=== PATIENT | male | born 1950 | race Caucasian/White ===

== ENCOUNTER → 2017-05-31 15:42 | Outpatient (CLI) | payer MEDICARE, BC, SELFPAY ==
--- NOTE | 2017-05-31 16:14 | RAD_ITS ---
STUDY: X-RAY - RIGHT SHOULDER REASON FOR EXAM: Recent surgery on right shoulder, inflammation. TECHNIQUE: 4 view(s) of the shoulder. COMPARISON: None. FINDINGS: There is glenohumeral arthrosis with marginal osteophytes of the humeral head and joint space narrowing at the inferior aspect. There is no acromioclavicular arthrosis. There are anchors in the humeral head. There is faint tendon calcification in the rotator cuff. There is narrowing of the acromiohumeral distance on the AP projection. There is atelectasis at the right lung base. RAD/Shoulder min 2 Views IMPRESSION: Glenohumeral arthrosis. Rotator cuff tendon calcification and narrowing of the acromiohumeral distance. Electronically Signed: Rustam Campos MD at 10:34 EST Tel , Service support ,
--- NOTE | 2017-05-31 16:21 | RAD_ITS ---
STUDY: X-RAY - LEFT SHOULDER REASON FOR EXAM: Left shoulder pain. TECHNIQUE: 4 view(s) of the shoulder. COMPARISON: None. FINDINGS: Normal glenohumeral articulation. Normal acromioclavicular joint. Normal acromion. Normal humeral head and visualized proximal humerus. The soft tissue structures are unremarkable. Normal visualized pulmonary apex. RAD/Shoulder min 2 Views IMPRESSION: Unremarkable x-ray examination of the left shoulder. Electronically Signed: Rustam Campos MD at 8:54 EST Tel , Service support ,
[2017-05-31 17:25] LABS: Absolute Lymphocyte Count 0.87 X10^3/ul (0.83-4.51); Basophil# 0.03 X10^3/uL; Basophil% 0.3 % (0-1); Eosinophil# 0.16 X10^3/uL; Eosinophils% 1.6 % (0-5); Hematocrit 44.7 % (40-54); Hemoglobin 14.6 g/dl (13.0-16.5); Lymphocyte # 0.87 X10^3/ul (4.0); Lymphocyte % 8.9 % (19-41); Mean Corp Hgb Conc 32.7 g/gl (32-36); Mean Corpuscular Hgb 33.8 pg (27.0-32.0); Mean Corpuscular Volume 103.5 fL (80-94); Mean Platelet Vol. 11.3 fl (6.2-12.0); Monocyte# 0.67 X10^3/uL; Monocyte% 6.9 % (0-10); Neutrophil # 7.97 X10^3/uL (2.7-7.7); Neutrophil % 81.6 % (47-70); Platelet Count 309 K/mm3 (150-450); RBC Distribution Width CV 13.8 % (11.6-14.6); RBC Distribution Width SD 52.3 fl (35.1-43.9); Red Blood Count 4.32 M/mm3 (4.6-6.2); White Blood Count 9.8 K/mm3 (4.4-11.0)
[2017-05-31 17:27] LABS: POSITIVE COUNT NO; POSITIVE DIFFERENTIAL NO; POSITIVE MORPHOLOGY NO
[2017-05-31 18:15] LABS: ALB/GLOB Ratio 1.4 RATIO (0.9-2.4); AST(SGOT) 29 U/L (15-37); Alanine Aminotransfer ALT/SGPT 28 U/L (16-61); Albumin, Serum 4.1 g/dL (3.2-5.0); Alkaline Phosphatase 92 U/L (45-117); Anion Gap 9 (5-15); BUN 21 mg/dL (7-18); BUN/Creat Ratio 21.5 RATIO (10-20); Calcium,Total 8.9 mg/dL (8.5-10.1); Chloride 102 mmol/L (98-107); Creatinine, Serum 0.98 mg/dL (0.70-1.30); EST Glomerular Filtration Rate 82 mL/min (>60); Est Glom Filt Rate - Afr Amer 99 mL/min (>60); Glucose 94 mg/dL (74-106); Potassium 3.8 mmol/L (3.5-5.1); Protein, Total 7.1 g/dL (6.4-8.2); Sodium Level 139 mmol/L (136-145)
== END ==
PROVIDERS: Family Provider Family Medicine; PCP Family Medicine; Visit Provider Internal Medicine
DX: M06.4 Inflammatory polyarthropathy (principal); M17.0 Bilateral primary osteoarthritis of knee; Q66.7 Congenital pes cavus; G31.83 Neurocognitive disorder with Lewy bodies; I48.0 Paroxysmal atrial fibrillation; J44.9 Chronic obstructive pulmonary disease, unspecified; M47.897 Other spondylosis, lumbosacral region; G20 Parkinson's disease; F03.90 Unspecified dementia, unspecified severity, without behavioral disturbance, psychotic disturbance, mood disturbance, and anxiety; Z79.899 Other long term (current) drug therapy
CPT/HCPCS: 36415; 73030; 80053; 85025

== ENCOUNTER → 2017-12-12 11:52 | Outpatient (CLI) | payer MEDICARE, BC, SELFPAY ==
[2017-12-12 12:41] LABS: Absolute Lymphocyte Count 0.83 X10^3/ul (0.83-4.51); Absolute Neutrophil Count 6.7 X10^3/uL (2.0-7.7); Basophil# 0.03 X10^3/uL; Basophil% 0.4 % (0-1); Eosinophil# 0.19 X10^3/uL; Eosinophils% 2.3 % (0-5); Hematocrit 44.6 % (40-54); Hemoglobin 13.9 g/dl (13.0-16.5); Lymphocyte # 0.83 X10^3/ul (4.0); Mean Corp Hgb Conc 31.2 g/gl (32-36); Mean Corpuscular Hgb 32.6 pg (27.0-32.0); Mean Corpuscular Volume 104.7 fL (80-94); Mean Platelet Vol. 10.3 fl (6.2-12.0); Monocyte# 0.51 X10^3/uL; Monocyte% 6.1 % (0-10); Neutrophil % 80.4 % (47-70); POSITIVE COUNT NO; POSITIVE DIFFERENTIAL NO; POSITIVE MORPHOLOGY NO; Platelet Count 332 K/mm3 (150-450); RBC Distribution Width CV 13.9 % (11.6-14.6); RBC Distribution Width SD 52.6 fl (35.1-43.9); Red Blood Count 4.26 M/mm3 (4.6-6.2); White Blood Count 8.3 K/mm3 (4.4-11.0)
[2017-12-12 13:08] LABS: ALB/GLOB Ratio 1.1 RATIO (0.9-2.4); AST(SGOT) 22 U/L (15-37); Alanine Aminotransfer ALT/SGPT 17 U/L (16-61); Albumin, Serum 3.5 g/dL (3.2-5.0); Alkaline Phosphatase 78 U/L (45-117); Anion Gap 10 (5-15); BUN 16 mg/dL (7-18); BUN/Creat Ratio 20.4 RATIO (10-20); Calcium,Total 8.5 mg/dL (8.5-10.1); Chloride 108 mmol/L (98-107); Creatinine, Serum 0.78 mg/dL (0.70-1.30); EST Glomerular Filtration Rate 105 mL/min (>60); Est Glom Filt Rate - Afr Amer 127 mL/min (>60); Globulin 3.2 g/dL (2.2-4.2); Glucose 94 mg/dL (74-106); Potassium 3.9 mmol/L (3.5-5.1); Protein, Total 6.7 g/dL (6.4-8.2); Sodium Level 145 mmol/L (136-145)
== END ==
PROVIDERS: Family Provider Family Medicine; PCP Family Medicine; Visit Provider Family Medicine
DX: Z51.81 Encounter for therapeutic drug level monitoring (principal)
CPT/HCPCS: 80053; 85025

== ENCOUNTER → 2018-03-13 08:34 | Outpatient (CLI) | payer MEDICARE, BC, SELFPAY | PROVIDERS: Family Provider Family Medicine; PCP Family Medicine; Visit Provider Family Medicine | DX: M06.9 Rheumatoid arthritis, unspecified (principal); Z51.81 Encounter for therapeutic drug level monitoring ==

== ENCOUNTER → 2018-06-11 09:53 | Outpatient (CLI) | payer MEDICARE, BC, SELFPAY ==
--- NOTE | 2018-06-11 09:57 | ECHOD_ITS ---
Reason For Study: Afib/Flutter Procedure This was a 2D Doppler, Color Flow transthoracic echocardiogram. Exam performed in department. Left Ventricle Normal LV size. Moderate eccentric left ventricular hypertrophy. Mid cavitary false tendon noted. The estimated ejection fraction is 60 %. Left ventricular systolic function is normal. Stage 3 diastolic dysfunction. No regional wall motion abnormalities noted. Atria The left atrium is mildly enlarged. Normal right atrium. Mitral Valve Normal mitral valve. Mild (1+) eccentric mitral valve insufficiency. Tricuspid Valve Normal tricuspid valve. Mild (1+) tricuspid valve insufficiency. Pulmonary artery systolic pressure is 36 mmHg. Aortic Valve Mild focal aortic valve calcification. Bicuspid aortic valve. Mild-Moderate (1-2+) eccentric aortic valve insufficiency. Pulmonic Valve Normal pulmonic valve. Great Vessels Normal aortic root. The pulmonary artery is normal size. Normal inferior vena cava. Pericardium/Pleural No pericardial effusion. MMode/2D Measurements & Calculations LVIDd: 4.3 cm IVSd: 1.7 cm LVOT diam: 2.0 cm LVIDs: 2.2 cm LVPWd: 1.1 cm LVOT area: 3.2 cm2 RVDd: 3.3 cm FS: 49.5 % Ao root diam: 4.2 cm LAV(MOD-bp): 89.6 ml Aortic Valve Planimetry: 2.1 cm2 LA dimension: 5.4 cm LAV(MOD-bp) Indexed: 44.8 ml/m2 LAV(MOD-sp2): 83.2 ml LAV(MOD-sp4): 84.8 ml LA A4 area: 26.6 cm2 RA A4 area: 12.7 cm2 Time Measurements MV dec time: 0.14 sec Doppler Measurements & Calculations MV E max alen: 108.9 cm/sec Lat Peak E' Alen: 13.9 cm/sec Med Peak E' Alen: 11.4 cm/sec MV A max alen: 26.4 cm/sec E/E' lat: 7.9 E/E' med: 9.5 MV E/A: 4.1 Ao V2 max: 162.2 cm/sec AI max alen: 489.1 cm/sec LV V1 max: 115.9 cm/sec Ao max P.5 mmHg AI max P.7 mmHg LV V1 max P.4 mmHg Ao V2 mean: 109.7 cm/sec AI dec slope: 276.7 cm/sec2 LV V1 mean P.7 mmHg Ao mean P.4 mmHg AI P1/2t: 517.7 msec LV V1 mean: 75.4 cm/sec Ao V2 VTI: 29.7 cm LV V1 VTI: 23.0 cm JOAQUIN(I,D): 2.5 cm2 JOAQUIN(V,D): 2.3 cm2 SV(LVOT): 74.3 ml PA V2 max: 77.8 cm/sec TR max alen: 285.2 cm/sec TR max P.5 mmHg Interpretation Summary Normal LV size. Moderate eccentric left ventricular hypertrophy. The estimated ejection fraction is 60 %. Left ventricular systolic function is normal. Stage 3 diastolic dysfunction. Mild (1+) tricuspid valve insufficiency. Ordering Physician: Ole Bassett Referring Physician: Ole Bassett Performed By: Antonio Vail RCS
== END ==
PROVIDERS: Family Provider Family Medicine; PCP Family Medicine; Referring Provider Internal Medicine Cardiovascular Disease; Visit Provider Internal Medicine Cardiovascular Disease
DX: I48.3 Typical atrial flutter (principal)
CPT/HCPCS: 93306

== ENCOUNTER 2018-08-02 10:21 | Emergency (ER) | payer MEDICARE, BC, SELFPAY ==
[2018-08-02 10:23] VITALS: BP 124/78; PULSE 78; RESP 24; TEMP 36.4; O2SAT 90; BMI 29.9
--- NOTE | 2018-08-02 10:24 | RAD_ITS ---
STUDY: X-RAY CHEST REASON FOR EXAM: Male, 68 years old. Weakness. Atrial fibrillation. TECHNIQUE: Single AP portable view of the chest. COMPARISON: Comparison is made with prior study dated January 13, 2017. FINDINGS: EKG electrodes are seen. Mild increased markings at the lung bases suggestive of bibasilar atelectasis. Poor inspiratory effort. There is no demonstrated pleural abnormality. Normal size heart. Normal mediastinum and edward. Normal visualized pulmonary arteries. There is atherosclerotic tortuosity of the aortic arch and descending thoracic aorta. There are diffuse degenerative changes of the visualized thoracic spine. Normal visualized ribs, clavicles, and shoulders. There is no demonstrated abnormality of the visualized soft tissue structures of the upper abdomen. RAD/Chest 1 View (Portable) IMPRESSION: Mild degree of bibasilar atelectasis. Electronically Signed: Ishan Singh, at 11:04 EDT , Service support ,
--- NOTE | 2018-08-02 10:24 | EKG12_ITS ---
Test Reason : Blood Pressure : / mmHG Vent. Rate : 078 BPM Atrial Rate : 312 BPM P-R Int : 000 ms QRS Dur : 096 ms QT Int : 398 ms P-R-T Axes : 000 -06 007 degrees QTc Int : 453 ms Atrial fibrillation with premature ventricular or aberrantly conducted complexes Minimal voltage criteria for LVH, may be normal variant Abnormal ECG Confirmed by JESUS FORMAN, JON ([id number]), art editor DIANN FLORES ([id number]) on 08/06/2018 10:22:17 AM Referred By: PETER Confirmed By:JON LEE MD
--- NOTE | 2018-08-02 10:25 | CT_ITS ---
STUDY: CT BRAIN WITHOUT CONTRAST REASON FOR EXAM: Male, 68 years old. Weakness and dementia. RADIATION DOSAGE (If Supplied By Facility): CTDIvol = ( 44.99 ) mGy, DLP = ( 829.85 ) mGycm TECHNIQUE: Transaxial CT imaging of the brain was performed without administration of intravenous contrast material. Individualized dose optimization techniques were used for this CT. COMPARISON: Comparison is made with prior study dated October 30, 2015. FINDINGS: Normal soft tissue structures. Normal calvarium. Normal size ventricles and extra-axial spaces for the patient's age. Normal white matter tracts of the cerebral hemispheres. There are small punctate calcifications of the basal ganglia which are seen in the aging brain as a normal variant. Normal brainstem. Normal cerebellum. There is no intracranial hemorrhage. There are no findings of an acute ischemic infarction. Normal visualized paranasal sinuses. CT/Brain/Head without Contrast IMPRESSION: Normal unenhanced CT scan of the brain. Electronically Signed: Ishan Singh, at 11:41 EDT , Service support ,
--- NOTE | 2018-08-02 10:28 | ED.DCSUM_ITS ---
- ER Visit Summary Date of Service: 08/02/18 Chief Complaint: [] Falling cough weakness trouble walking History of Present Illness: The patient is a 68 M [] patient has a history of dementia Parkinson's disease difficulty with gait at baseline, per EMS they were called to the patient's home because he had worsening weakness to the point he kept falling could not manage him he has fallen once or twice he did not injure himself the last time he fell the called the neighbor who helped to get him off the ground, then apparently he had a fall or near fall again and paramedics were called on their arrival he was sitting, no complaints he does complain of generalized fatigue he has a cough his pulse ox here is 91% on room air indicates he does have some type of breathing problem he takes an inhaler, he denies head neck chest or abdominal pain he feels he is at his baseline he is moving all 4 extremities NIH is 0, his cardiac rhythm is irregular to about 70- 80's noted that he is on Xarelto other hospital records indicate he has a flutter or fib Physical Examination: [] 130/80, heart rate 70-80 pulse ox 90% room air General, no distress resting comfortably HEENT is generally unremarkable The neck is supple no adenopathy Cardiovascular, regular rate and rhythm Lungs, clear bilateral Abdomen, soft nontender Extremities, no clubbing cyanosis or edema Neurologic, awake alert answering questions appropriately moving all 4 extremities he has some scattered bruising to his extremities he is awake alert answering questions appropriately no signs of head injury or stroke that is obvious, his NIH is 0 Test Results: [] Emergency Department Course and Treatment: [] All of the above screening labs CT aerosols will discuss with family if they present On reevaluation the patient's pulse ox is now 93 on room air he is resting comfortably in the bed, the indicate he does have COPD and after the aerosol he is feeling better the is here his studies are all generally unremarkable to his reports including the CT, he has no complaints of any kind we discussed inpatient versus outpatient management with the and the patient the patient does not wish to be admitted the is couple taking him home for further outpatient management and have him return for change in symptoms and she is just feels as if she can manage him at home and does not wish to have him admitted Treatment Plan: [] Disposition: [] Home stable Impression: [] History of Parkinson's disease dementia, generalized weakness, COPD This note was generated with [employer] dictation software. It may contain incorrect words, spelling, and punctuation that were not noted in review of the chart prior to signing ED Disposition - Plan for ED Patient: Referrals: Cristobal Robledo DO [Primary Care Provider] -
[2018-08-02 10:30] VITALS: BP 115/84; PULSE 69; RESP 20; O2SAT 95
[2018-08-02 10:40] LABS: Absolute Lymphocyte Count 0.83 X10^3/ul (0.83-4.51); Absolute Neutrophil Count 5.6 X10^3/uL (2.0-7.7); Basophil# 0.04 X10^3/uL; Basophil% 0.6 % (0-1); Eosinophil# 0.13 X10^3/uL; Eosinophils% 1.9 % (0-5); Hematocrit 41.9 % (40-54); Hemoglobin 13.6 g/dl (13.0-16.5); Lymphocyte # 0.83 X10^3/ul (4.0); Lymphocyte % 12.2 % (19-41); Mean Corp Hgb Conc 32.5 g/gl (32-36); Mean Corpuscular Volume 101.7 fL (80-94); Mean Platelet Vol. 10.6 fl (6.2-12.0); Monocyte# 0.21 X10^3/uL; Monocyte% 3.1 % (0-10); Neutrophil # 5.56 X10^3/uL (2.7-7.7); Neutrophil % 81.6 % (47-70); Platelet Count 237 K/mm3 (150-450); RBC Distribution Width CV 13.9 % (11.6-14.6); RBC Distribution Width SD 51.5 fl (35.1-43.9); Red Blood Count 4.12 M/mm3 (4.6-6.2); White Blood Count 6.8 K/mm3 (4.4-11.0)
[2018-08-02 10:41] LABS: POSITIVE COUNT NO; POSITIVE DIFFERENTIAL NO; POSITIVE MORPHOLOGY NO
[2018-08-02 10:43] VITALS: PULSE 71; RESP 17; O2SAT 96
[2018-08-02] MEDS: Ipratropium/Albuterol Sulfate 3 ML AMPUL.NEB INHALATION ×2 (10:43→13:48)
[2018-08-02] MEDS: 0.9% Normal Saline 1,000 ML 150 ML IV (10:51)
[2018-08-02 10:59] LABS: Anion Gap 5 (5-15); BUN 12 mg/dL (7-18); BUN/Creat Ratio 13.1 RATIO (10-20); Calcium,Total 8.9 mg/dL (8.5-10.1); Chloride 110 mmol/L (98-107); Creatinine, Serum 0.92 mg/dL (0.70-1.30); EST Glomerular Filtration Rate 87 mL/min (>60); Est Glom Filt Rate - Afr Amer 106 mL/min (>60); Estimated Creatinine Clearance 75.38 ml/min; Glucose 97 mg/dL (74-106); Potassium 3.5 mmol/L (3.5-5.1); Sodium Level 144 mmol/L (136-145)
--- NOTE | 2018-08-02 13:15 | ED.DEP ---
ED Disposition - Plan for ED Patient: Instructions: ED Weakness [facility]O, ED COPD Flare Referrals: Cristobal Robledo DO [Primary Care Provider] -
[2018-08-02 13:49] VITALS: PULSE 78; RESP 20; O2SAT 98
[2018-08-02 14:10] VITALS: BP 137/97; PULSE 72; RESP 17; O2SAT 97
== END 2018-08-02 14:13 | disposition home or self-care (01) ==
LOC: ED 10:53
PROVIDERS: Emergency Provider Emergency Medicine; Family Provider Family Medicine; PCP Family Medicine
DX: R53.1 Weakness (principal); G20 Parkinson's disease; F02.80 Dementia in other diseases classified elsewhere, unspecified severity, without behavioral disturbance, psychotic disturbance, mood disturbance, and anxiety; J44.9 Chronic obstructive pulmonary disease, unspecified; I48.91 Unspecified atrial fibrillation; Z79.02 Long term (current) use of antithrombotics/antiplatelets; Z79.51 Long term (current) use of inhaled steroids
CPT/HCPCS: 70450; 71045; 80048; 83880; 84484; 85025; 93005; 94640; 96360; 96361; 99285; J7030; A4216

== ENCOUNTER → 2018-09-03 | Outpatient (CLI) | payer MEDICARE, BC, SELFPAY ==
[2018-09-03 14:40] LABS: Color, Urine Yellow (Yellow); Glucose, Dipstick Normal (Normal); Ketone-Dipstick 15 mg/dl (Negative); Leukocyte Esterase-Dipstick 25 /ul (Negative); Nitrite-Dipstick Negative (Negative); Occult Blood-Urine Negative /ul (Negative); Protein-Dipstick 30 mg/dl (Negative); Urine Bilirubin Dipstick Negative (Negative); Urine Clarity Clear (Clear); Urine Urobilinogen 1 mg/dl (Normal)
== END | disposition home or self-care (01) ==
PROVIDERS: Family Provider Family Medicine; PCP Family Medicine
DX: R35.8 Other polyuria (principal)
CPT/HCPCS: 81002

== ENCOUNTER → 2018-10-22 | Outpatient (CLI) | payer MEDICARE, BC, SELFPAY ==
--- NOTE | 2018-10-22 09:38 | RAD_ITS ---
STUDY: X-RAY - CERVICAL SPINE REASON FOR EXAM: Male, 68 years old. Chronic pain. TECHNIQUE: 3 view(s) of the cervical spine were obtained. COMPARISON: None FINDINGS: Normal anterior atlantoaxial articulation. Normal odontoid process. Normal cervical lordosis. There is multi-level endplate spondylosis. There is multi-level degenerative disc disease with multilevel disc space narrowing. The soft tissue structures are unremarkable. RAD/Cerv Spine 2 or 3 Views IMPRESSION: Degenerative changes. Electronically Signed: Maite Marquez MD at 17:01 EDT Tel , Service support ,
== END | disposition home or self-care (01) ==
LOC: RAD 09:36
PROVIDERS: Family Provider Family Medicine; PCP Family Medicine; Referring Provider Anesthesiology Pain Medicine; Visit Provider Anesthesiology Pain Medicine
DX: M54.2 Cervicalgia (principal)
CPT/HCPCS: 72040

== ENCOUNTER 2019-03-20 09:48 | Inpatient (IN) | payer MEDICARE, OTHER, SELFPAY ==
[2018-11-26 11:12] VITALS: BMI 29.9
[2019-03-20] VITALS (7 sets, daily range): BP systolic 110–159; BP diastolic 70–96; PULSE 74–79; RESP 16–24; TEMP 36.2–36.7; O2SAT 95–100; BMI 27.1; BMI 27.3; BMI 27.4
--- NOTE | 2019-03-20 09:58 | RAD_ITS ---
STUDY: X-RAY CHEST REASON FOR EXAM: Male, 69 years old. Chest pain and confusion. TECHNIQUE: Single AP portable view of the chest. COMPARISON: Comparison is made with prior study dated August 02, 2018. FINDINGS: Minimal increased markings at the right lung base suggestive of scarring. There is no demonstrated pleural abnormality. Normal size heart. Normal mediastinum and edward. Normal visualized pulmonary arteries. There is atherosclerotic tortuosity of the aortic arch and descending thoracic aorta. There are degenerative changes of the visualized thoracic spine. Prior interpedicular screw fixation in the upper lumbar spine. Normal visualized ribs, clavicles, and shoulders. There is no demonstrated abnormality of the visualized soft tissue structures of the upper abdomen. RAD/Chest 1 View (Portable) IMPRESSION: Minimal increased markings at the right lung base suggestive of scarring. Electronically Signed: Ishan Singh, at 10:25 EST , Service support ,
--- NOTE | 2019-03-20 09:58 | EKG12_ITS ---
Test Reason : CONFUSION Blood Pressure : / mmHG Vent. Rate : 076 BPM Atrial Rate : 326 BPM P-R Int : 000 ms QRS Dur : 086 ms QT Int : 392 ms P-R-T Axes : 000 004 007 degrees QTc Int : 441 ms Atrial fibrillation Abnormal ECG Confirmed by LOPEZ FORMAN, NOAH ([id number]), editor sound BENEDICTO GOMEZ ([id number]) on 03/24/2019 9:46:23 AM Referred By: Johnyn Lizarraga Confirmed By:DUANE MARROQUIN MD
--- NOTE | 2019-03-20 10:24 | CT_ITS ---
STUDY: CT BRAIN WITHOUT CONTRAST REASON FOR EXAM: Male, 69 years old. Confusion. Parkinson's disease. RADIATION DOSAGE (If Supplied By Facility): CTDIvol = ( 44.99 ) mGy, DLP = ( 796.11 ) mGycm TECHNIQUE: Transaxial CT imaging of the brain was performed without administration of intravenous contrast material. Individualized dose optimization techniques were used for this CT. COMPARISON: Comparison is made with prior examination dated August 02, 2018. FINDINGS: Normal soft tissue structures. Normal calvarium. There is mild cerebral atrophy with widening of the extra-axial spaces and ventricular dilatation. Normal white matter tracts of the cerebral hemispheres. There are small punctate calcifications of the basal ganglia which are seen in the aging brain as a normal variant. Normal brainstem. Normal cerebellum. There is no intracranial hemorrhage. There are no findings of an acute ischemic infarction. Atherosclerotic calcification of the cavernous portions of the internal carotid arteries as well as the vertebral arteries bilaterally. Normal visualized paranasal sinuses. CT/Brain/Head without Contrast IMPRESSION: Chronic involutional changes of the brain. Electronically Signed: Ishan Singh, at 11:19 EST , Service support ,
--- NOTE | 2019-03-20 10:32 | ED.VIS.GEN ---
History of Present Illness Chief Complaint: Confusion Informant: Patient Onset: Month(s) Current Severity: Mild Narrative: History of Parkinson's disease with Lewy bodies and transient confusional episodes, per the he has had progressively worsening confusion to where she cannot manage him at home, he basically tries to walk outside the house, verbalizes that he went for a walk when he did not, he puts garbage in the refrigerator and has other behaviors that make it hard for the to manage him, she has been trying to manage him by making sure he takes all his medications keeping him well hydrated and fed he has not improved, she spoke with Dr. Robledo the primary care physician and it was recommended he come to the hospital for admission for skilled nursing rehab placement, he does have A. fib he is on Xarelto he has not fallen or hit his head he has had no nausea or vomiting normal bowel bladder habits Past Medical History - Allergies and Home Meds Allergies/Adverse Reactions: Allergies gentamicin [Gentamicin] Allergy (Verified 03/20/19 09:51) Unknown hydrocodone bitartrate [From Vicodin] Allergy (Verified 03/20/19 09:51) Itching morphine Allergy (Verified 03/20/19 09:51) Itching oxycodone Allergy (Verified 03/20/19 09:51) Itching Primary Care Physician: Cristobal Robledo DO [Primary Care Provider] - Past Medical History: - - Includes Parkinson's disease A. fib see the above Surgical History: appendectomy, cholecystectomy, rotator cuff repair, - - Hernia repair, Foot surgery, Ablation. Smoking Status: Former smoker Review of Systems General: Denies: Chills, Fever, Sweats Eyes: Denies: Visual changes - bilaterally, Diplopia ENT: Denies: Rhinorrhea, Sore throat Cardiovascular: Denies: Chest pain, Palpitations Respiratory: Denies: Dyspnea, Cough, Dyspnea on exertion Gastrointestinal: Denies: Abdominal pain, Nausea, Vomiting, Diarrhea, Melena, Hematochezia Genitourinary: Denies: Dysuria, Hematuria, Frequency Musculoskeletal: Denies: Back pain, Extremity Pain Skin: Denies: Rash, Wounds Neurological: Reports: - - Worsening confusion hallucinations about activities behaviors as above. Denies: Headache, Weakness, Numbness Physical Exam Vital Signs/Narrative: Vital Signs Temp Pulse Resp BP Pulse Ox 03/20/19 09:49 98 F 74 18 110/70 100 General: Well nourished, Well developed, No Acute Distress Head: Normocephalic, Atraumatic Eyes: Perrl, EOMI ENT: Moist mucous membranes, No rhinorrhea Neck: Supple, Nontender Cardiovascular: Regular rate, Regular rhythm, No murmurs Respiratory: No distress, CTA bilaterally, Chest nontender Abdomen: Soft, Nontender, Nondistended, Normal bowel sounds Back: Nontender, Normal Inspection Extremities: Nontender, No edema Skin: Normal color, No rash Neurological: Alert, Oriented x3, Cranial nerves II-XII grossly intact, Normal Strength, Normal Sensation, - - Currently moving all 4 extremities he is awake to his name knows his [facility] he has no complaints he does not have any details nor can he remember the above events he does recognize at times he is confused he denies head neck chest or abdominal pain Psychological: Normal affect, Normal Mood Diagnostic/Tx/Re-eval - Medical Decision Making All the above screening labs head CT The patient screening work-up with labs x-ray head CT generally unremarkable Patient's EKG shows a rate of 76 no acute injury pattern atrial fibrillation intervals within range Given all the above and the 's inability to manage him at home has progressively worsening confusion I have asked the hospitalist to see the patient for admission Admit stable Impression final Parkinson's dementia with worsening confusion Failed outpatient therapy Atrial fibrillation Xarelto therapy ED Disposition - Plan for ED Patient: Diagnosis: Atrial flutter, Confusion change in mental status Pinky Referrals: Cristobal Robledo DO [Primary Care Provider] -
[2019-03-20 10:38] LABS: Absolute Lymphocyte Count 0.69 X10^3/uL (0.83-4.51); Basophil# 0.05 X10^3/uL; Basophil% 0.6 % (0-1); Eosinophil# 0.15 X10^3/uL; Eosinophils% 1.7 % (0-5); Hematocrit 39.8 % (40-54); Hemoglobin 12.9 g/dL (13.0-16.5); Lymphocyte # 0.69 X10^3/ul (4.0); Mean Corp Hgb Conc 32.4 g/dL (32-36); Mean Corpuscular Hgb 33.6 pg (27.0-32.0); Mean Corpuscular Volume 103.6 fL (80-94); Mean Platelet Vol. 10.5 fl (6.2-12.0); Monocyte# 0.65 X10^3/uL; Monocyte% 7.6 % (0-10); NRBC Flagged by Analyzer 0 % (0-5); Neutrophil # 6.99 X10^3/uL (2.7-7.7); Neutrophil % 81.4 % (47-70); Platelet Count 269 K/mm3 (150-450); RBC Distribution Width CV 12.9 % (11.6-14.6); Red Blood Count 3.84 M/mm3 (4.6-6.2); White Blood Count 8.6 K/mm3 (4.4-11.0)
[2019-03-20] MEDS: 0.9% Normal Saline 1,000 ML 150 ML IV (10:40)
--- NOTE | 2019-03-20 10:46 | ED.RN ---
PT A&O X3 W/PERIODS OF CONFUSION AND HALLUCINATIONS- STATES HE WAS HIKING IN THE [place], REACHING FOR OBJECTS IN THE AIR THAT AREN'T THERE.
[2019-03-20 10:58] LABS: Anion Gap 5 (5-15); BUN 12 mg/dL (7-18); BUN/Creat Ratio 14.3 RATIO (10-20); Calcium,Total 8.6 mg/dL (8.5-10.1); Chloride 110 mmol/L (98-107); Creatinine, Serum 0.84 mg/dL (0.70-1.30); EST Glomerular Filtration Rate 96 mL/min (>60); Est Glom Filt Rate - Afr Amer 117 mL/min (>60); Estimated Creatinine Clearance 78.69 ml/min; Glucose 91 mg/dL (74-106); Potassium 3.5 mmol/L (3.5-5.1); Sodium Level 144 mmol/L (136-145)
--- NOTE | 2019-03-20 11:41 | NURSING ---
HOSPITALIST FOR DR GREEN
--- NOTE | 2019-03-20 11:47 | NURSING ---
med surg teressa worsening confusion, parkinson's , dementia
--- NOTE | 2019-03-20 11:59 | PCM.HP.STD ---
Problem List (1) Lewy body dementia with behavioral disturbance Status: Acute (2) Parkinson's disease Status: Acute (3) Chronic atrial fibrillation Status: Chronic (4) Diastolic dysfunction Status: Chronic (5) Nonrheumatic aortic (valve) insufficiency Status: Chronic (6) Bicuspid aortic valve Status: Chronic (7) Atrial flutter Status: Chronic Qualifiers: Atrial flutter type: typical Qualified Code(s): I48.3 - Typical atrial flutter Comment: pulmonary vein isolation , cardioversion 1999, 2007,2008, 2014 History of Present Illness Date of Admission: 03/20/19 Chief Complaint: Progressive worsening of mental status for 2 to 3 weeks The patient is a 69 year old M with history of Parkinson's disease with Lewy body dementia diagnosed about 3 years ago was brought in to ER for progressive worsening of disorganized thought, change in behavior, confusion and worsening of memory. As per the , who is main caregiver he tries to walk outside the house, puts carbogen refrigerator and gets restless. He denies any persistent fever or chills although had one episode of chills about 2 weeks ago. Complain of sometimes burning micturition at about 1 week ago and was tested negative and UA done by PCP on past Monday. Currently denies dysuria, increased frequency urgency. Denies flulike symptoms, sinus congestion or sore throat. No abdominal pain. Has mild constipation. [] Basic work-up done in ER is unrevealing. K3.5. Chest x-ray no acute finding but minimal increased markings at right lung base history of scarring. CT brain chronic involutional changes. EKG A. fib 76 bpm. Previous EKG in July 2018 was also A. fib. Past Medical History Past Medical History (Chronic Problems): Chronic Problems (Last Updated 06/11/18 @ 16:28 by Nandini Luciano) Chronic atrial fibrillation (Chronic) Diastolic dysfunction (Chronic) Nonrheumatic aortic (valve) insufficiency (Chronic) Bicuspid aortic valve (Chronic) Atrial flutter (Chronic) pulmonary vein isolation , cardioversion 1999, 2007,2008, 2014 Medical History: Medical History (Last Updated 06/11/18 @ 16:28 by Nandini Luciano) Diastolic dysfunction (Chronic) I51.89 Nonrheumatic aortic (valve) insufficiency (Chronic) I35.1 Palpitations (Chronic) R00.2 Bicuspid aortic valve (Chronic) Q23.1 Atrial flutter (Chronic) I48.92 pulmonary vein isolation , cardioversion 1999, 2007,2008, 2014 Asthma J45.909 Chest discomfort R07.89 Fatigue R53.83 Allergies gentamicin [Gentamicin] Allergy (Verified 03/20/19 09:51) Unknown hydrocodone bitartrate [From Vicodin] Allergy (Verified 03/20/19 09:51) Itching morphine Allergy (Verified 03/20/19 09:51) Itching oxycodone Allergy (Verified 03/20/19 09:51) Itching Home Medications: Ambulatory Orders Medication Instructions Recorded carbidopa 25 mg-levodopa 100 mg 1 tab PO 4X/DAY tab 08/29/17 tablet escitalopram 10 mg tablet 10 mg PO BID 08/29/17 carbidopa 10 mg-levodopa 100 mg 1 tab PO 4X/DAY 30 Days #120 08/31/17 tablet rivastigmine 9.5 mg/24 hour 1 patch TRANSDERMAL DAILY 30 Days 08/31/17 transdermal patch #30 rivaroxaban 20 mg tablet 20 mg PO DAILY #90 tab 05/14/18 methotrexate sodium 2.5 mg tablet 15 mg PO SA 05/29/18 Albuterol Sulfate [Proventil Hfa] 2 puff IH Q4H PRN PRN 08/02/18 Imipramine HCl 50 mg PO DAILY 08/02/18 Metaxalone [Skelaxin] 800 mg PO DAILY PRN PRN 08/02/18 Pyridoxine HCl (Vitamin B6) 200 mg PO DAILY 08/02/18 [Vitamin B-6] Quetiapine Fumarate [Seroquel Xr] 200 mg PO QHS 08/02/18 metoprolol tartrate 25 mg tablet 25 mg PO BID #180 tab 11/06/18 tramadol 50 mg tablet 50 mg PO DAILY PRN 11/26/18 Pantoprazole Sodium [Protonix] 40 mg PO DAILY 03/20/19 Surgical History: Surgical History (Last Updated 06/11/18 @ 16:28 by Nandini Luciano) H/O repair of rotator cuff (Resolved) Z98.890 History of arthroscopy of knee (Resolved) Z98.890 History of lumbar surgery (Resolved) Z98.890 History of tonsillectomy and adenoidectomy (Resolved) Z98.890 Hx of appendectomy (Resolved) Z90.49 Hx of cholecystectomy (Resolved) Z90.49 Hx of hernia repair (Resolved) Z98.890, Z87.19 Surgical History: appendectomy, cholecystectomy, rotator cuff repair, - - Hernia repair, Foot surgery, Ablation. Psychiatric History: Anxiety Smoking Status: Former smoker - Quit in 1999 - *Family History Paternal History Items: - - Patient does not know as he is adopted Review of Systems Constitutional: Denies: Chills, Fever, Weight Change HEENT: Denies: Head Aches, Sinus Congestion, Sinus Drainage Cardiovascular: Denies: Chest Pain, Palpitations Respiratory: Denies: Cough, Shortness of breath at rest, Sputum production Gastrointestinal: Reports: Constipation. Denies: Abdominal Pain, Nausea, Vomiting Genitourinary: Denies: Dysuria Musculoskeletal: Reports: - - Lumbar spine surgery.. Denies: Joint Pain, Joint Tenderness Skin: Denies: Rash, Wounds Neurological: Denies: Numbness, Tingling, Focal weakness Psychiatric: Reports: Anxiety. Denies: Depression, Homicidal Ideations, Suicidal Ideations Hematologic/ Lymphatic: Denies: Easy Bruising, Easy Bleeding Unable to obtain accurate/complete ROS d/t: ROS is limited at patient has dementia. Mainly taken from VTE Information - Inpt Only [facility]TE Present on Admission: No VTE Mechan Device Prophylaxis: None VTE Pharm Prophylaxis ordered?: Yes Patient Problems: Active and Suspected Problems (Last Updated 06/11/18 @ 16:28 by Nandini Luciano) Lewy body dementia with behavioral disturbance (Acute) Parkinson's disease (Acute) - Physical Exam Vitals/I&O's: Vital Signs Temp Pulse Resp BP Pulse Ox 98 F 74 18 110/70 97 03/20/19 09:49 03/20/19 09:49 03/20/19 09:49 03/20/19 09:49 03/20/19 10:38 Oxygen Delivery Method Room Air Weight: 173 lb Body Mass Index (BMI) 27.1 General: Alert, Oriented x3, Cooperative HEENT: Atraumatic, PERRLA, EOMI, Normocephalic Oral: Dry Mucosa Neck: Supple, No JVD, Negative Carotid Bruits Lungs: Clear to auscultation, Normal air movement, No rhonchi, No wheeze, No rales Cardiovascular: Normal S1, Normal S2, No murmurs, Irregular Rate Abdomen: Bowel Sounds Present, Soft, Non Tender, Non-Distended Extremities: No edema, Capillary Refill Less than 3 Seconds Skin: No rashes, No breakdown Musculoskeletal: No Tenderness to Palpation of Joints or Extremities, Arthritic Changes Neurological: Cranial nerves II-XII grossly intact Psych/Mental Status: Normal Affect, Appropriate Laboratory Results 03/20/19 10:20: WBC 8.6, RBC 3.84 L, Hgb 12.9 L, Hct 39.8 L, MCV 103.6 H, MCH 33.6 H, MCHC 32.4, RDW Std Deviation 48.0 H, RDW Coeff of Declan 12.9, Plt Count 269, MPV 10.5, Immature Gran % (Auto) 0.700, Neut % (Auto) 81.4 H, Lymph % (Auto) 8.0 L, [place] % (Auto) 7.6, Eos % (Auto) 1.7, Baso % (Auto) 0.6, Absolute Neuts (auto) 7.0, Absolute Lymphs (auto) 0.69 L, Nucleated RBC % 0 03/20/19 10:20: Sodium 144, Potassium 3.5, Chloride 110 H, Carbon Dioxide 29.0, Anion Gap 5, BUN 12, Creatinine 0.84, Estim Creat Clear Calc 78.69, Est GFR (MDRD) Af Amer 117, Est GFR (MDRD) Non-Af 96, BUN/Creatinine Ratio 14.3, Glucose 91, Calcium 8.6, Troponin I < 0.015 Current Medications Sodium Chloride () 1,000 mls @ 150 mls/hr IV .Q6H40M [facility] Last Admin: 03/20/19 10:40 Dose: 150 mls/hr Documented by: Assessment/Plan All Active Problems (Last Updated 06/11/18 @ 16:28 by Nandini Luciano) Lewy body dementia with behavioral disturbance (Acute) Parkinson's disease (Acute) H/O repair of rotator cuff (Resolved) History of arthroscopy of knee (Resolved) History of lumbar surgery (Resolved) History of tonsillectomy and adenoidectomy (Resolved) Hx of appendectomy (Resolved) Hx of cholecystectomy (Resolved) Hx of hernia repair (Resolved) The patient is a 69 year old M with history of Parkinson's disease with Lewy body dementia diagnosed about 3 years ago was brought in to ER for progressive worsening of disorganized thought, change in behavior, confusion and worsening of memory. Basic work-up done in ER is unrevealing. K3.5. Chest x-ray no acute finding but minimal increased markings at right lung base history of scarring. CT brain chronic involutional changes. EKG A. fib 76 bpm. Previous EKG in July 2018 was also A. fib. 1 acute encephalopathy most likely due to progressive worsening of dementia; Lewy body dementia with acute mental status changes probably from polypharmacy: Overall exam, it does not seem patient has acute infection. Patient is being admitted to [facility]. UA and urine culture is ordered. PT, OT and speech evaluation. Case management. IV fluid normal saline at 75 mill per hour ordered K 3.5 1 dose of K-dur 40 M EQ ordered. 2. Parkinson's disease with Lewy bodies dementia: Patient is on carbidopa, pyridoxine and Exelon patch and are continued. Patient is also on Seroquel, imipramine, and escitalopram. Hold imipramine. Decrease the dose of Seroquel 200 mg daily. Continue escitalopram. 3. Chronic A. fib, nonrheumatic aortic insufficiency with bicuspid aortic valve: Patient has a history of radiofrequency ablation twice but is still A. fib. On Xarelto. Rate is controlled. Patient had echo in May [address] vivas. Normal LV size.Moderate eccentric left ventricular hypertrophy.The estimated ejection fraction is 60 %. Mild LA enlargement. Stage 3 diastolic dysfunction.Mild (1+) tricuspid valve insufficiency. Mild to moderate eccentric AI. Currently no cardiopulmonary symptoms. Symptoms. 4. Decreased functional capacity with impaired ADL: PT OT and speech evaluation. Possible skilled nursing placement. Mild constipation. DVT prophylaxis: Patient is on Xarelto. Code Visit Inpatient E&M: 30058 Init Hosp L3
[2019-03-20 14:18] LABS: Bacteria 0 SEEN /hpf (None Seen); Color, Urine Yellow (Yellow); Glucose, Dipstick Normal (Normal); Ketone-Dipstick Negative (Negative); Leukocyte Esterase-Dipstick Negative /ul (Negative); Mucous, Urine 0 SEEN /hpf (<or=2+); Nitrite-Dipstick Negative (Negative); Occult Blood-Urine Negative /ul (Negative); Protein-Dipstick Negative (Negative); Red Blood Cells-Urine 0 SEEN /hpf (0-5); Squamous Epithelial Cells - UA 0 SEEN /hpf (0-5); Urine Bilirubin Dipstick Negative (Negative); Urine Clarity Clear (Clear); Urine Urobilinogen Normal (Normal); Urine pH 6.5 (5.0 - 8.0); White Blood Cells 0 SEEN /hpf (0-5)
[2019-03-20] MEDS: 0.9% Normal Saline 1,000 ML 75 ML IV (16:58)
[2019-03-20] MEDS: Carbidopa/Levodopa 25/100 Tablet PO ×2 (16:58→20:40)
[2019-03-20] MEDS: QUEtiapine 25 MG Tablet 50 MG PO (20:40)
[2019-03-20] MEDS: Metoprolol Tartrate 25 MG Tablet PO (20:40)
[2019-03-20] MEDS: Metaxalone 800 MG Tablet PO (23:56)
--- NOTE | 2019-03-21 03:47 | NURSING ---
pt frequently setting off bed exit trying to jump in/out of bed. sitter with pt for safety. has been toileted mult times, bladder scan wnl, had snack. reorientation/reassurance not effective. notified
[2019-03-21] MEDS: LORazepam 2 MG/ML Syringe 0.5 MG IV (04:16)
[2019-03-21] MEDS: 0.9% Saline Lock 10 ML Syringe IV ×2 (04:16→05:55)
[2019-03-21 04:17] VITALS: BP 126/83; PULSE 74; RESP 16; TEMP 36.3; O2SAT 94
[2019-03-21] MEDS: Carbidopa/Levodopa 25/100 Tablet PO ×4 (05:55→22:14)
--- NOTE | 2019-03-21 06:08 | NURSING ---
AMBULATED TO BATHROOM WITH RN VOIDED AND RETURNED TO BED. BED EXIT ON. BREAKFAST ORDERED. PT HAS BEEN SLEEPING WELL SINCE ATIVAN.
[2019-03-21] MEDS: Rivastigmine 9.5mg Patch 1 PATCH TRANSDERM. (08:50)
[2019-03-21] MEDS: Polyethylene Glycol 3350 17 GM PACKET PO (08:53)
[2019-03-21 09:03] VITALS: PULSE 76
[2019-03-21] MEDS: Metoprolol Tartrate 25 MG Tablet PO ×2 (09:03→22:14)
[2019-03-21] MEDS: Escitalopram Oxalate 10 MG Tablet PO (09:03)
[2019-03-21] MEDS: QUEtiapine 25 MG Tablet 50 MG PO ×2 (09:04→22:14)
[2019-03-21] MEDS: Pantoprazole Sodium 40 MG Tablet PO (09:04)
[2019-03-21] MEDS: Pyridoxine HCl 100 MG Tablet 200 MG PO (09:04)
--- NOTE | 2019-03-21 10:11 | PN_ITS ---
Patient Problems: Active and Suspected Problems (Last Updated 06/11/18 @ 16:28 by Nandini Luciano) Lewy body dementia with behavioral disturbance (Acute) Parkinson's disease (Acute) Reason for Visit: Altered mental status. Advanced dementia. Subjective: Patient is awake. Mild to moderate antegrade or retrograde amnesia. Patient has bradykinesia, postural instability and tremors suggestive of Parkinson's disease. Vitals/I&O's: Vital Signs Temp Pulse Resp BP Pulse Ox 97.4 F L 76 16 126/83 H 94 03/21/19 04:17 03/21/19 09:03 03/21/19 04:17 03/21/19 04:17 03/21/19 04:17 Oxygen Delivery Method Room Air Weight: 175 lb Body Mass Index (BMI) 27.3 Intake and Output for Last 24 Hours 03/19/19 03/20/19 03/21/19 23:59 23:59 23:59 Intake Total 367.5 / 367.5 1082.5 / 1082.5 Output Total 100 / 100 Balance 367.5 / 367.5 982.5 / 982.5 General: Alert, Cooperative, Disoriented HEENT: Atraumatic, PERRLA, EOMI, Normocephalic Neck: Supple, No JVD, Negative Carotid Bruits Lungs: Clear to auscultation, Normal air movement, No rhonchi, No wheeze, No rales Cardiovascular: Normal S1, Normal S2, No murmurs, Irregular Rate Abdomen: Bowel Sounds Present, Soft, Non Tender, Non-Distended Extremities: No edema, Capillary Refill Less than 3 Seconds Skin: No rashes, No breakdown Musculoskeletal: No Tenderness to Palpation of Joints or Extremities, Arthritic Changes Lymphatic: No Cervical, Supraclavicular, or Inguinal Adenopathy Neurological: Cranial nerves II-XII grossly intact Psych/Mental Status: Normal Affect, Appropriate Laboratory Results 03/20/19 10:20: WBC 8.6, RBC 3.84 L, Hgb 12.9 L, Hct 39.8 L, MCV 103.6 H, MCH 33.6 H, MCHC 32.4, RDW Std Deviation 48.0 H, RDW Coeff of Declan 12.9, Plt Count 269, MPV 10.5, Immature Gran % (Auto) 0.700, Neut % (Auto) 81.4 H, Lymph % (Auto) 8.0 L, [place] % (Auto) 7.6, Eos % (Auto) 1.7, Baso % (Auto) 0.6, Absolute Neuts (auto) 7.0, Absolute Lymphs (auto) 0.69 L, Nucleated RBC % 0 03/20/19 10:20: Sodium 144, Potassium 3.5, Chloride 110 H, Carbon Dioxide 29.0, Anion Gap 5, BUN 12, Creatinine 0.84, Estim Creat Clear Calc 78.69, Est GFR (MDRD) Af Amer 117, Est GFR (MDRD) Non-Af 96, BUN/Creatinine Ratio 14.3, Glucose 91, Calcium 8.6, Troponin I < 0.015 03/20/19 14:00: Urine Color Yellow, Urine Clarity Clear, Urine pH 6.5, Ur Specific [place] 1.010, Urine Protein Negative, Urine Glucose (UA) Normal, Urine Ketones Negative, Urine Occult Blood Negative, Urine Nitrite Negative, Urine Bilirubin Negative, Urine Urobilinogen Normal, Ur Leukocyte Esterase Negative, Urine RBC 0 SEEN, Urine WBC 0 SEEN, Ur Squamous Epith Cells 0 SEEN, Urine Bacteria 0 SEEN, Urine Mucus 0 SEEN Current Medications Albuterol Sulfate (Ventolin Aerosols) 2.5 mg INHALATION Q4H PRN PRN PRN Reason: SOB &/OR WHEEZING Carbidopa/Levodopa (Sinemet) 1 tablet PO [facility] Last Admin: 03/21/19 05:55 Dose: 1 tablet Documented by: Escitalopram Oxalate (Lexapro) 10 mg PO DAILY [facility] Last Admin: 03/21/19 09:03 Dose: 10 mg Documented by: Metaxalone (Skelaxin) 800 mg PO DAILY PRN PRN PRN Reason: MUSCLE SPASM Last Admin: 03/20/19 23:56 Dose: 800 mg Documented by: Methotrexate (Methotrexate) 15 mg PO [facility] Metoprolol Tartrate (Lopressor (Beta Roque)) 25 mg PO BID [facility] Last Admin: 03/21/19 09:03 Dose: 25 mg Documented by: Pantoprazole Sodium (Protonix) 40 mg PO DAILY [facility] Last Admin: 03/21/19 09:04 Dose: 40 mg Documented by: Polyethylene Glycol (Miralax) 17 gm PO DAILY [facility] Last Admin: 03/21/19 08:53 Dose: 17 gm Documented by: Pyridoxine HCl (Vitamin B-6) 200 mg PO DAILY [facility] Last Admin: 03/21/19 09:04 Dose: 200 mg Documented by: Quetiapine Fumarate (Seroquel) 50 mg PO BID [facility] Last Admin: 03/21/19 09:04 Dose: 50 mg Documented by: Rivaroxaban (Xarelto) 20 mg PO DAILY@1700 [facility] Last Admin: 03/20/19 14:46 Dose: Not Given Documented by: Rivastigmine (Exelon 9.5mg/24hr Patch) 1 patch TRANSDERM. DAILY [facility] Last Admin: 03/21/19 08:50 Dose: 1 patch Documented by: Senna/Docusate Sodium (Senokot-S, Maryjane-Colace) 2 tablet PO BID PRN PRN PRN Reason: CONSTIPATION Sodium Chloride () 10 - 40 ml IV UD PRN PRN Reason: SALINE FLUSH Last Admin: 03/21/19 05:55 Dose: 10 ml Documented by: Tramadol HCl (Ultram) 50 mg PO DAILY PRN PRN Reason: Pain -01/24 Last Admin: 03/21/19 00:00 Dose: 50 mg Documented by: STROKE Vital Signs/Narrative: Vital Signs Pulse 03/21/19 09:03 76 Medical Necessity - Tobacco Use Smoking Status: Former smoker Assessment/Plan All Active Problems (Last Updated 06/11/18 @ 16:28 by Nandini Luciano) Lewy body dementia with behavioral disturbance (Acute) Parkinson's disease (Acute) H/O repair of rotator cuff (Resolved) History of arthroscopy of knee (Resolved) History of lumbar surgery (Resolved) History of tonsillectomy and adenoidectomy (Resolved) Hx of appendectomy (Resolved) Hx of cholecystectomy (Resolved) Hx of hernia repair (Resolved) The patient is a 69 year old M with history of Parkinson's disease with Lewy body dementia diagnosed about 3 years ago was brought in to ER for progressive worsening of disorganized thought, change in behavior, confusion and worsening of memory. Basic work-up done in ER is unrevealing. K3.5. Chest x-ray no acute finding but minimal increased markings at right lung base history of scarring. CT brain chronic involutional changes. EKG A. fib 76 bpm. Previous EKG in July 2018 was also A. fib. 1 acute encephalopathy most likely due to progressive worsening of dementia; [place] body dementia with acute mental status changes probably from polypharmacy: Overall exam, it does not seem patient has acute infection. Patient is being admitted to [facility]. UA and urine culture is ordered. PT, OT and speech evaluation. Case management. IV fluid normal saline at 75 mill per hour ordered K 3.5 1 dose of K-dur 40 M EQ ordered. 03/21: Mental status change seems more chronic. B12 is 323, folate 5.3. Ammonia level normal. UA is negative. Urine culture did not show any growth. Electrolytes within normal limits. 2. Parkinson's disease with Lewy bodies dementia: Patient is on carbidopa, pyridoxine and Exelon patch and are continued. Patient is also on Seroquel, imipramine, and escitalopram. Hold imipramine. Decrease the dose of Seroquel 200 mg daily. Continue escit alopram. 03/21: Patient has increased muscle rigidity, postural instability. Increase the frequency of carbidopa levodopa. 3. Chronic A. fib, nonrheumatic aortic insufficiency with bicuspid aortic valve: Patient has a history of radiofrequency ablation twice but is still A. fib. On Xarelto. Rate is controlled. Patient had echo in May [address] vivas. Normal LV size.Moderate eccentric left ventricular hypertrophy.The estimated ejection fraction is 60 %. Mild LA enlargement. Stage 3 diastolic dysfunction.Mild (1+) tricuspid valve insufficiency. Mild to moderate eccentric AI. Currently no active cardiopulmonary symptoms. 4. Decreased functional capacity with impaired ADL: PT OT and speech evaluation. Possible [facility] placement. Mild constipation. 03/21: Discussed with the watch caser. Need SNF placement. On stool softener. DVT prophylaxis: Patient is on Xarelto. Microbiology Past 72 Hours 03/20/19 14:00 Urine, Clean Catch Urine Culture - Preliminary Culture exhibits no growth. Laboratory Results 03/21/19 10:30: Sodium 143, Potassium 3.9, Chloride 109 H, Carbon Dioxide 29.0, Anion Gap 5, BUN 13, Creatinine 0.83, Estim Creat Clear Calc 79.64, Est GFR (MDRD) Af Amer 119, Est GFR (MDRD) Non-Af 98, BUN/Creatinine Ratio 15.7, Glucose 82, Calcium 8.3 L, Total Bilirubin 0.50, AST 17, ALT 15 L, Alkaline Phosphatase 97, C-React Prot Ext Range 3.21 H, Total Protein 6.1 L, Albumin 3.3, Globulin 2.8, Albumin/Globulin Ratio 1.2, Folate 5.30 03/21/19 10:30: Vitamin B12 323 03/21/19 10:30: Ammonia < 10.0 L Code Visit Inpatient E&M: 49079 Subs Hosp L2
[2019-03-21 10:17] VITALS: BP 105/61; PULSE 76; RESP 16; TEMP 37.1; O2SAT 94
[2019-03-21 11:21] LABS: Ammonia < 10.0 umol/L (11-32)
[2019-03-21 11:31] LABS: ALB/GLOB Ratio 1.2 RATIO (0.9-2.4); AST(SGOT) 17 U/L (15-37); Alanine Aminotransfer ALT/SGPT 15 U/L (16-61); Albumin, Serum 3.3 g/dL (3.2-5.0); Alkaline Phosphatase 97 U/L (45-117); Anion Gap 5 (5-15); BUN 13 mg/dL (7-18); BUN/Creat Ratio 15.7 RATIO (10-20); CRP 3.21 mg/L (0.0-3.0); Calcium,Total 8.3 mg/dL (8.5-10.1); Chloride 109 mmol/L (98-107); Creatinine, Serum 0.83 mg/dL (0.70-1.30); EST Glomerular Filtration Rate 98 mL/min (>60); Est Glom Filt Rate - Afr Amer 119 mL/min (>60); Estimated Creatinine Clearance 79.64 ml/min; Globulin 2.8 g/dL (2.2-4.2); Glucose 82 mg/dL (74-106); Potassium 3.9 mmol/L (3.5-5.1); Protein, Total 6.1 g/dL (6.4-8.2); Sodium Level 143 mmol/L (136-145)
[2019-03-21 11:57] LABS: Vitamin B12 323 pg/mL (211-911)
[2019-03-21] MEDS: traMADol 50 MG Tablet PO ×2 (13:22)
--- NOTE | 2019-03-21 14:09 | CASEMGMT ---
Social Work Assessment Referral Date: 03/21/2019 Date of Assessment: 03/21/2019 Reason for consult: SNF placement/Initial assessment Informant: AYAAN Personal Status: SW met with pt and pt's Kaya. Pt is presently confused, has history of dementia and Parkinson's disease. AYAAN introduced self and role at [facility]. Imani states she and pt live together in ranch style home with two steps to enter. Imani states she has red tape around the house and bells on the doors. Imani states that pt believes he is able to do all ADLs but she assists when needed. Kaya states that pt has a cane and walker. Preferred pharmacy is [facility] and PCP is Dr. Robledo. mIani states that pt goes to [facility] 2-3 times a week. AYAAN asked Imani about discharge plans. Kaya states that she would prefer to take pt home for the holidays and look into intermediate beginning of the year. AYAAN explained Medicare rules and guidelines and at this time, physician is thinking discharge tomorrow and pt won't get qualifying stay for SNF under Medicare. AYAAN explained that if pt goes to SNF before three midnights then it would be private pay for SNF. Imani states she has looked into private pay and it is $4,000-$6,000 a month. AYAAN asked Kaya about applying for medicaid. Kaya states she has looked into getting medicaid and they don't qualify. AYAAN also educated Kaya on [facility] and Kaya states she has also been in contact with them and they don't qualify for their services either. AYAAN educated Imani to [facility] and explained pt will need to be home bound. Kaya states pt is homebound. Kaya asked about [facility]HC. AYAAN explained that this worker can make referral to [facility] for RN, PT/OT and explained that getting SW and aides in the home would also be beneficial. Kaya agreeable to referral to [facility] for RN, PT/OT, SW and Aides. Imani denied additional needs or concerns at this time. AYAAN reviewed PT/OT. Pt walked 410 stand by assist yesterday and 150 min assist today. AYAAN placed order for HHC. RN DARRIN Riggins updated and spoke with Krupa at [facility] and provided referral. Plan: Home with [facility] RN, PT/OT, SW, aides Fawn Shine RESEARCH TECHNOLOGIST, [employer] C[employer]IST APPRENTICE
[2019-03-21 16:17] VITALS: BP 128/83; PULSE 74; RESP 16; TEMP 36.6; O2SAT 95
[2019-03-21] MEDS: Carbidopa/Levodopa 10/100 Tablet PO ×2 (17:09→22:14)
[2019-03-21] MEDS: Rivaroxaban 20 MG Tablet PO (17:10)
[2019-03-21 22:14] VITALS: BP 149/87; PULSE 85
[2019-03-21 22:17] VITALS: BP 149/87; PULSE 85; RESP 18; TEMP 36.6; O2SAT 100
[2019-03-22 02:09] VITALS: BP 142/82; PULSE 92; RESP 18; TEMP 36.5; O2SAT 99
[2019-03-22 06:03] LABS: Absolute Lymphocyte Count 1.26 X10^3/uL (0.83-4.51); Absolute Neutrophil Count 7.2 X10^3/uL (2.0-7.7); Basophil# 0.06 X10^3/uL; Basophil% 0.6 % (0-1); Eosinophil# 0.23 X10^3/uL; Eosinophils% 2.4 % (0-5); Hematocrit 43.7 % (40-54); Hemoglobin 14.1 g/dL (13.0-16.5); Lymphocyte # 1.26 X10^3/ul (4.0); Lymphocyte % 13.2 % (19-41); Mean Corp Hgb Conc 32.3 g/dL (32-36); Mean Corpuscular Hgb 33.9 pg (27.0-32.0); Mean Platelet Vol. 10.4 fl (6.2-12.0); Monocyte# 0.68 X10^3/uL; Monocyte% 7.1 % (0-10); NRBC Flagged by Analyzer 0 % (0-5); Neutrophil # 7.16 X10^3/uL (2.7-7.7); Neutrophil % 75.2 % (47-70); Platelet Count 285 K/mm3 (150-450); RBC Distribution Width CV 13.1 % (11.6-14.6); RBC Distribution Width SD 49.7 fl (35.1-43.9); Red Blood Count 4.16 M/mm3 (4.6-6.2); White Blood Count 9.5 K/mm3 (4.4-11.0)
[2019-03-22] MEDS: Carbidopa/Levodopa 10/100 Tablet PO ×2 (06:52→10:01)
[2019-03-22] MEDS: traMADol 50 MG Tablet PO (06:52)
[2019-03-22] MEDS: Carbidopa/Levodopa 25/100 Tablet PO ×2 (06:52→10:03)
[2019-03-22 08:15] VITALS: BP 102/67; PULSE 99; RESP 18; TEMP 36.8; O2SAT 97
[2019-03-22] MEDS: Pantoprazole Sodium 40 MG Tablet PO (10:01)
[2019-03-22] MEDS: Pyridoxine HCl 100 MG Tablet 200 MG PO (10:01)
[2019-03-22] MEDS: Rivastigmine 9.5mg Patch 1 PATCH TRANSDERM. (10:01)
[2019-03-22] MEDS: Escitalopram Oxalate 10 MG Tablet PO (10:01)
[2019-03-22 10:02] VITALS: PULSE 99
[2019-03-22] MEDS: Metoprolol Tartrate 25 MG Tablet PO (10:02)
[2019-03-22] MEDS: Polyethylene Glycol 3350 17 GM PACKET PO (10:02)
[2019-03-22] MEDS: QUEtiapine 25 MG Tablet 50 MG PO (10:02)
--- NOTE | 2019-03-22 13:05 | DCINST_ITS ---
- Discharge Diagnoses Current Active Problems: Current Active and Chronic Problems (Last Updated 06/11/18 @ 16:28 by Nandini Luciano) Lewy body dementia with behavioral disturbance (Acute) Parkinson's disease (Acute) Chronic atrial fibrillation (Chronic) Atrial flutter (Chronic) pulmonary vein isolation , cardioversion 1999, 2007,2008, 2014 You will use the following diet at home:: No restrictions Your food should be the consistency of: Regular Your liquids should be the consistency of: Regular/Thin Discharge Activity: Return to Normal Activity Call your doctor if you observe: Fever of 101 or Higher, Inability to urinate, Inability to have a bowel movement, Shortness of breath, Fainting spells, Chest pain, Increased palpitations (irregular heartbeat) Additional Instructions: I suspect that the altered mental status changes may be due to progression of the dementia and possibly due to overmedication. the seroquel was changed at admission from 200 mg at bedtime of long acting Seroquel to 50 mg twice a day of short acting Seroquel. Dosing it twice a day may improve behavior during the day. Dementia is a progressive illness and there is really no effective treatment at this time. As it progresses patients generally will develop trouble swallowing and trouble walking. With Lewy body dementia the symptoms wax and wane.......one day they may be lucid and fine and the next completely disoriented and having bad behavior. I think it is a good thing you are taking him home to have the holidays but, I think he may need placement after the holidays.......you should not feel guilty about this. This way would allow you to visit and spend quality time with him because he would have someone else doing the day to day stuff like toileting and bathing, etc. I hope your holidays go well and are happy! Pending Tests on Discharge: none Allergies/Adverse Reactions: Allergies gentamicin [Gentamicin] Allergy (Verified 03/20/19 09:51) Unknown hydrocodone bitartrate [From Vicodin] Allergy (Verified 03/20/19 09:51) Itching morphine Allergy (Verified 03/20/19 09:51) Itching oxycodone Allergy (Verified 03/20/19 09:51) Itching Medications to take at Discharge carbidopa 25 mg-levodopa 100 mg tablet 1 tab PO 4X/DAY tab 08/29/17 escitalopram 10 mg tablet 10 mg PO QHS 08/29/17 carbidopa 10 mg-levodopa 100 mg tablet 1 tab PO 4X/DAY 30 Days #120 08/31/17 rivastigmine 9.5 mg/24 hour transdermal patch 1 patch TRANSDERMAL DAILY 30 Days #30 08/31/17 methotrexate sodium 2.5 mg tablet 15 mg PO SA 05/29/18 Albuterol Sulfate [Proventil Hfa] 2 puff IH Q4H PRN PRN 08/02/18 Metaxalone [Skelaxin] 800 mg PO DAILY PRN PRN 08/02/18 Pyridoxine HCl (Vitamin B6) [Vitamin B-6] 200 mg PO DAILY 08/02/18 metoprolol tartrate 25 mg tablet 25 mg PO BID #180 tab 11/06/18 tramadol 50 mg tablet 50 mg PO DAILY PRN 11/26/18 Pantoprazole Sodium [Protonix] 40 mg PO DAILY 03/20/19 rivaroxaban 20 mg tablet 20 mg PO DAILY #90 tab 03/21/19 Quetiapine Fumarate [Seroquel] 50 mg PO BID #60 tab 03/22/19 The following prescriptions were given: Quetiapine Fumarate [Seroquel] 50 mg PO BID #60 tab Prescription Printed Primary Care Physician: Cristobal Robledo DO [Primary Care Provider] - Please follow up with your Primary Care Physician in: 1 week Test Results: Test results from this visit will be discussed in further detail at your follow- up appointment, if applicable. Proposed Discharge Date: 03/22/19
--- NOTE | 2019-03-22 13:21 | PCM.DC.SUM ---
Discharge Date and Diagnosis Date of Admission: 03/20/19 Date of Discharge: 03/22/19 - Primary Discharge Diagnosis Active and Suspected Problems (Last Updated 06/11/18 @ 16:28 by Nandini Luciano) Acute encephalopathy on chronic Lewy Body dementia due to constipation and polypharmacy Lewy body dementia with behavioral disturbance, increased confusion and confusion acute worse than previous baseline. Constipation (Acute) - Secondary Discharge Diagnosis Chronic Problems (Last Updated 06/11/18 @ 16:28 by Nandini Luciano) Lewy body dementia with behavioral disturbance (Chronic) Parkinson's disease (Chronic) Chronic atrial fibrillation (Chronic) Diastolic dysfunction (Chronic) Nonrheumatic aortic (valve) insufficiency (Chronic) Bicuspid aortic valve (Chronic) Atrial flutter (Chronic) pulmonary vein isolation , cardioversion 1999, 2007,2008, 2014 Hospital Course and Treatment Imaging Results: Clinical Impression(s) from Imaging Studies Chest X-Ray 03/20/19 09:58 IMPRESSION: Minimal increased markings at the right lung base suggestive of scarring. Electronically Signed: Ishan Singh, at 10:25 EST , Service support , Brain CT 03/20/19 10:24 IMPRESSION: Chronic involutional changes of the brain. Electronically Signed: Ishan Singh, at 11:19 EST , Service support , Microbiology 03/20/19 14:00 Urine, Clean Catch Urine Culture - Final Culture exhibits no growth. none Operations: None Procedures: None Summary of Care Provided: The patient is a 69 year old M with a past medical history of Parkinson's disease, Lewy body dementia, atrial fibrillation, diastolic dysfunction, nonrheumatic aortic valve insufficiency, bicuspid aortic valve former tobacco dependence in remission, chronic anticoagulation with Xarelto and COPD who presented to the emergency department at [facility] on 03/20/2019 with complaints of increased confusion, increased behavioral disturbance/restlessness, disorganized thinking and acute decrease in memory. He had also been constipated. There were no recent changes in his medications. CBC in the emergency room revealed a normal white blood cell count at 8.6 with 81% neutrophils. The hemoglobin was 12.9 with macrocytic indices and the platelets were within normal limits. BMP was unremarkable. Troponin was less than 0.015 and the UA was negative for pyuria or hematuria. A noncontrasted CT brain showed involutional changes only with no acute findings. Chest x-ray showed no evidence of infiltrate, pleural effusion or pulmonary vascular congestion. He was admitted to the hospital for observation. IV fluids and potassium were ordered and the lab was repeated the next day. Seroquel XR 200 mg at HS was transitioned to 50 mg Seroquel BID. On 03/21 he had 3 BM's. White blood cell count remains normal at 9.5. Potassium increased from 3.5-3.9 with supplementation. An ammonia level was less than 10. C-reactive protein was only mildly elevated at 3.21. LFTs were unremarkable. Urine culture had no growth. B12 was normal at 323. Folate was normal at 5.3. On 03/22/2019 vital signs were stable. He had been afebrile for the entirety of his admission. Oral intake had improved and was 1010 on the date of discharge. His stated that he seemed to be back at or near his baseline. He was assessed and treated by PT/OT during his admission and they felt he would benefit from HHC. He is homebound. She wanted to take him home for the holidays and then will look into placement. She was agreeable to a referral for [facility] for PT/OT, an aide and a SW. He will remain on Seroquel 50 mg BID which seems better in controlling the daytime behavioral disturbances the the long acting Seroquel. He will follow up with Dr. Robledo in 1 week. A Prescription was given for the Seroquel at discharge. PHYSICAL EXAM: GENERAL: alert,oriented to person and place, Cooperative, NAD, answering questions appropriately ORAL: moist mucosa, no mucosal lesions NECK: No JVD, supple, trachea midline LUNGS: CTA, symmetric chest expansion HEART: RRR, Normal S1 and S2, no rub, no gallop ABDOMEN: soft, NT, ND, BS present, no guarding with palpation EXTREMITIES: no edema, no cyanosis, no calf tenderness SKIN: No rashes, no breakdown NEUROLOGIC: no focal neurologic deficits PSYCH: appropriate, normal affect, pleasant This note was generated with Dragon dictation software. It may contain incorrect words, spelling, and punctuation that were not noted in checking the note before signing. - Physical Exam Vitals/I&O's: Vital Signs Temp Pulse Resp BP Pulse Ox 98.3 F 99 18 102/67 97 03/22/19 08:15 03/22/19 10:02 03/22/19 08:15 03/22/19 08:15 03/22/19 08:15 Oxygen Delivery Method Room Air Weight: 175 lb Body Mass Index (BMI) 27.3 Intake and Output for Last 24 Hours 03/20/19 03/21/19 03/22/19 23:59 23:59 23:59 Intake Total 367.5 / 367.5 1082.5 / 1232.5 510 / 510 Output Total 100 / 100 Balance 367.5 / 367.5 982.5 / 1132.5 510 / 510 Microbiology Past 72 Hours 03/20/19 14:00 Urine, Clean Catch Urine Culture - Final Culture exhibits no growth. Laboratory Results 03/22/19 05:54: WBC 9.5, RBC 4.16 L, Hgb 14.1, Hct 43.7, MCV 105.0 H, MCH 33.9 H, MCHC 32.3, RDW Std Deviation 49.7 H, RDW Coeff of Declan 13.1, Plt Count 285, MPV 10.4, Immature Gran % (Auto) 1.500 H, Neut % (Auto) 75.2 H, Lymph % (Auto) 13.2 L, Graves % (Auto) 7.1, Eos % (Auto) 2.4, Baso % (Auto) 0.6, Absolute Neuts (auto) 7.2, Absolute Lymphs (auto) 1.26, Nucleated RBC % 0, Differential Comment Not Reportable Current Medications Albuterol Sulfate (Ventolin Aerosols) 2.5 mg INHALATION Q4H PRN PRN PRN Reason: SOB &/OR WHEEZING Carbidopa/Levodopa (Sinemet) 1 tablet PO ACHS CASANDRA Last Admin: 03/22/19 10:03 Dose: 1 tablet Documented by: Carbidopa/Levodopa (Sinemet) 1 tablet PO 0630,1030,1630,2230 CASANDRA Last Admin: 03/22/19 10:01 Dose: 1 tablet Documented by: Escitalopram Oxalate (Lexapro) 10 mg PO DAILY [facility] Last Admin: 03/22/19 10:01 Dose: 10 mg Documented by: Metaxalone (Skelaxin) 800 mg PO DAILY PRN PRN PRN Reason: MUSCLE SPASM Last Admin: 03/20/19 23:56 Dose: 800 mg Documented by: Methotrexate (Methotrexate) 15 mg PO [facility] Metoprolol Tartrate (Lopressor (Beta Roque)) 25 mg PO BID [facility] Last Admin: 03/22/19 10:02 Dose: 25 mg Documented by: Pantoprazole Sodium (Protonix) 40 mg PO DAILY [facility] Last Admin: 03/22/19 10:01 Dose: 40 mg Documented by: Polyethylene Glycol (Miralax) 17 gm PO DAILY [facility] Last Admin: 03/22/19 10:02 Dose: 17 gm Documented by: Pyridoxine HCl (Vitamin B-6) 200 mg PO DAILY [facility] Last Admin: 03/22/19 10:01 Dose: 200 mg Documented by: Quetiapine Fumarate (Seroquel) 50 mg PO BID [facility] Last Admin: 03/22/19 10:02 Dose: 50 mg Documented by: Rivaroxaban (Xarelto) 20 mg PO DAILY@1700 [facility] Last Admin: 03/21/19 17:10 Dose: 20 mg Documented by: Rivastigmine (Exelon 9.5mg/24hr Patch) 1 patch TRANSDERM. DAILY [facility] Last Admin: 03/22/19 10:01 Dose: 1 patch Documented by: Senna/Docusate Sodium (Senokot-S, Maryjane-Colace) 2 tablet PO BID PRN PRN PRN Reason: CONSTIPATION Sodium Chloride () 10 - 40 ml IV UD PRN PRN Reason: SALINE FLUSH Last Admin: 03/21/19 05:55 Dose: 10 ml Documented by: Tramadol HCl (Ultram) 50 mg PO DAILY PRN PRN Reason: Pain -01/24 Last Admin: 03/22/19 06:52 Dose: 50 mg Documented by: Discharge Activity: Return to Normal Activity Call your doctor if you observe: Fever of 101 or Higher, Inability to urinate, Inability to have a bowel movement, Shortness of breath, Fainting spells, Chest pain, Increased palpitations (irregular heartbeat) Home Medications: Medications to take at Discharge carbidopa 25 mg-levodopa 100 mg tablet 1 tab PO 4X/DAY tab 08/29/17 escitalopram 10 mg tablet 10 mg PO QHS 08/29/17 carbidopa 10 mg-levodopa 100 mg tablet 1 tab PO 4X/DAY 30 Days #120 08/31/17 rivastigmine 9.5 mg/24 hour transdermal patch 1 patch TRANSDERMAL DAILY 30 Days #30 08/31/17 methotrexate sodium 2.5 mg tablet 15 mg PO SA 05/29/18 Albuterol Sulfate [Proventil Hfa] 2 puff IH Q4H PRN PRN 08/02/18 Metaxalone [Skelaxin] 800 mg PO DAILY PRN PRN 08/02/18 Pyridoxine HCl (Vitamin B6) [Vitamin B-6] 200 mg PO DAILY 08/02/18 metoprolol tartrate 25 mg tablet 25 mg PO BID #180 tab 11/06/18 tramadol 50 mg tablet 50 mg PO DAILY PRN 11/26/18 Pantoprazole Sodium [Protonix] 40 mg PO DAILY 03/20/19 rivaroxaban 20 mg tablet 20 mg PO DAILY #90 tab 03/21/19 Quetiapine Fumarate [Seroquel] 50 mg PO BID #60 tab 03/22/19 Following Prescrptions Were Given to Patient: Quetiapine Fumarate [Seroquel] 50 mg PO BID #60 tab Prescription Printed Primary Care Physician: Cristobal Robledo DO [Primary Care Provider] - Please follow up with your Primary Care Physician in: 1 week Minutes spent on discharge:: 35 Medical Necessity - Tobacco Use Smoking Status: Former smoker Tobacco Use: Non-smoker Meaningful Use Info Meaningful Use Diagnoses (Choose all that apply): None applicable Code Visit OBSV E&M: 45909 Observation care discharge
[2019-03-22 14:09] VITALS: BP 110/73; PULSE 74; RESP 16; TEMP 36.6; O2SAT 95
--- NOTE | 2019-03-25 16:02 | CASEMGMT ---
Case Management DC F/u Call: DC Date: 03/22/19 DC Diagnosis: Acute encephalopathy on chronic Lewy Body dementia due to constipation and polypharmacy Lewy body dementia with behavioral disturbance, increased confusion and confusion acute worse than previous baseline. Constipation (Acute) DC Disposition: Home with [facility] PT/OT, AYAAN, Bernie Ramirez/Strata: 01/17 Called patient home number listed on demographics, Kaya answered, introduced self and role. States her is doing better today. [facility] did try to give him the DC medication Seroquel and patient had some difficulty, [facility] has stopped giving to him since and he seems to be doing better without it. Has not heard from [facility] yet and [facility] does not have the contact number. This principal technical writer provided [facility] number over the phone and encouraged to call. [facility] has been f/b [facility] Has not made a f/u appointment with Dr Robledo yet as she wanted to see how patient did today, this principal technical writer encouraged her to call and make an appointment as Medication like Seroquel is advised not to stop abruptly and will need f/u to continue to monitor and come up with a plan. Kaya states understanding. Asked if patient can continue to go to [facility] off an on. This principal technical writer made aware sees no problem as long as patient has no behavioral disturbances and s/w [facility] about it with their approval. Denies any further questions, concerns, or issues with [facility], Medications or f/u. Thanked her for choosing [facility] for care and ended conversation. Billy Beaulieu, RNCM
== END 2019-03-22 14:22 | disposition home or self-care (01) | DRG 92 ==
LOC: ED 10:26 → MS3 11:58
PROVIDERS: Admitting Provider Internal Medicine; Emergency Provider Emergency Medicine; Family Provider Family Medicine; PCP Family Medicine; Referring Provider Internal Medicine; Visit Provider Internal Medicine
DX: G92 Toxic encephalopathy (principal); F02.81 Dementia in other diseases classified elsewhere, unspecified severity, with behavioral disturbance; I48.20 Chronic atrial fibrillation, unspecified; Q23.1 Congenital insufficiency of aortic valve; T50.905A Adverse effect of unspecified drugs, medicaments and biological substances, initial encounter; G31.83 Neurocognitive disorder with Lewy bodies; G20 Parkinson's disease; Z79.01 Long term (current) use of anticoagulants; K59.00 Constipation, unspecified; I51.89 Other ill-defined heart diseases
CPT/HCPCS: 36415; 70450; 71045; 80048; 80053; 81001; 82140; 82607; 82746; 84484; 85025; 86140; 87086; 93005; 97110; 97116; 97162; 97166; 97530; 99285; J7030; A4216

== ENCOUNTER 2019-04-04 18:26 | Emergency (ER) | payer MEDICARE, OTHER, SELFPAY ==
[2019-03-20 12:30] VITALS: BMI 27.3
[2019-04-04 18:29] VITALS: BP 110/74; PULSE 97; RESP 16; TEMP 36.6; O2SAT 97; BMI 29.4
--- NOTE | 2019-04-04 18:55 | EKG12_ITS ---
Test Reason : DYSRYTHMIA Blood Pressure : / mmHG Vent. Rate : 104 BPM Atrial Rate : 104 BPM P-R Int : 000 ms QRS Dur : 090 ms QT Int : 358 ms P-R-T Axes : 000 009 011 degrees QTc Int : 470 ms Atrial fibrillation with rapid ventricular response Abnormal ECG Confirmed by NOEL FORMAN, DENA ([id number]), video news editor DIANN FLORES ([id number]) on 04/08/2019 11:34:03 AM Referred By: Victor Manuel De La Fuente Confirmed By:DENA COHEN MD
[2019-04-04] MEDS: Ziprasidone IM 20 MG/ML VIAL IM (19:22)
[2019-04-04 19:37] LABS: Absolute Lymphocyte Count 0.74 X10^3/uL (0.83-4.51); Absolute Neutrophil Count 7.2 X10^3/uL (2.0-7.7); Basophil# 0.04 X10^3/uL; Basophil% 0.4 % (0-1); Eosinophil# 0.12 X10^3/uL; Eosinophils% 1.3 % (0-5); Hematocrit 36.7 % (40-54); Hemoglobin 12.1 g/dL (13.0-16.5); Lymphocyte # 0.74 X10^3/ul (4.0); Lymphocyte % 8.3 % (19-41); Mean Corpuscular Hgb 33.5 pg (27.0-32.0); Mean Corpuscular Volume 101.7 fL (80-94); Mean Platelet Vol. 11.1 fl (6.2-12.0); Monocyte# 0.66 X10^3/uL; Monocyte% 7.4 % (0-10); NRBC Flagged by Analyzer 0 % (0-5); Neutrophil # 7.22 X10^3/uL (2.7-7.7); Neutrophil % 81.3 % (47-70); Platelet Count 289 K/mm3 (150-450); RBC Distribution Width CV 13.1 % (11.6-14.6); RBC Distribution Width SD 48.6 fl (35.1-43.9); Red Blood Count 3.61 M/mm3 (4.6-6.2); White Blood Count 8.9 K/mm3 (4.4-11.0)
[2019-04-04 19:52] LABS: Anion Gap 8 (5-15); BUN 21 mg/dL (7-18); BUN/Creat Ratio 23.9 RATIO (10-20); Calcium,Total 8.8 mg/dL (8.5-10.1); Chloride 108 mmol/L (98-107); Creatinine, Serum 0.88 mg/dL (0.70-1.30); EST Glomerular Filtration Rate 92 mL/min (>60); Est Glom Filt Rate - Afr Amer 111 mL/min (>60); Glucose 122 mg/dL (74-106); Potassium 3.9 mmol/L (3.5-5.1); Sodium Level 141 mmol/L (136-145)
[2019-04-04 20:50] VITALS: BP 162/101; PULSE 97; RESP 16
[2019-04-04] MEDS: Haloperidol Lactate 5 MG/ML Vial IM (20:51)
[2019-04-04 20:55] LABS: Bacteria 0 SEEN /hpf (None Seen); Mucous, Urine 0 SEEN /hpf (<or=2+); Red Blood Cells-Urine 0 SEEN /hpf (0-5); Squamous Epithelial Cells - UA 0 SEEN /hpf (0-5); White Blood Cells 0 SEEN /hpf (0-5)
[2019-04-04 21:01] LABS: Color, Urine Yellow (Yellow); Glucose, Dipstick Normal (Normal); Ketone-Dipstick Negative (Negative); Leukocyte Esterase-Dipstick Negative /ul (Negative); Nitrite-Dipstick Negative (Negative); Occult Blood-Urine Negative /ul (Negative); Protein-Dipstick Negative (Negative); Urine Bilirubin Dipstick Negative (Negative); Urine Clarity Clear (Clear); Urine Urobilinogen Normal (Normal); Urine pH 6.5 (5.0 - 8.0)
--- NOTE | 2019-04-04 21:20 | CT_ITS ---
STUDY: CT BRAIN WITHOUT CONTRAST REASON FOR EXAM: Male, 69 years old. Mental status change after falling RADIATION DOSAGE (If Supplied By Facility): CTDIvol = ( 44.99 ) mGy, DLP = ( 796.11 ) mGycm TECHNIQUE: Transaxial CT imaging of the brain was performed without administration of intravenous contrast material. Individualized dose optimization techniques were used for this CT. COMPARISON: 03/20/2019 FINDINGS: Normal soft tissue structures. Normal calvarium. There is mild cerebral atrophy with widening of the extra-axial spaces and ventricular dilatation. There are areas of decreased attenuation within the white matter tracts of the supratentorial brain, consistent with microvascular disease changes. Normal basal ganglia and thalami. Normal brainstem. Normal cerebellum. There is no intracranial hemorrhage. There are no findings of an acute ischemic infarction. Normal visualized paranasal sinuses. CT/Brain/Head without Contrast IMPRESSION: 1. No acute intracranial hemorrhage or mass effect. 2. Central parenchymal volume loss. White matter changes that are nonspecific but most commonly associated with chronic small vessel ischemic disease. Electronically Signed: Cedrick Gupta MD (Brooks) at 21:36 EST , Service support ,
--- NOTE | 2019-04-04 22:04 | ED.DCSUM_ITS ---
- ER Visit Summary Date of Service: 04/04/19 Chief Complaint: [Mental status change] History of Present Illness: The patient is a 69 M [presents to the emergency department with his with concern for change in mentation today. Patient became more fidgety after being given his evening medications around 4:30 PM. Patient has history of dementia and Parkinson's. Patient has had similar presentations in the past this seems to be more severe. In the past it was recommended that patient be placed to extended-care facility however the was not ready at that time. Patient does have a history of A. fib as well as a metabolic encephalopathy history. Patient really denies any headache, chest pain, or shortness of breath. Apparently he did have a fall at some point today onto the carpeted floor. No loss of consciousness. It is unclear if he hit his head. He did sustain a skin tear to his left elbow.] Physical Examination: [HEENT-PERRLA, EOMI. Cranial nerves II through XII grossly intact. TMs clear. Mucous membranes moist. No adenopathy. External evidence of trauma to his head. He has no C-spine tenderness on palpation. Patient does seem to be quite fidgety with continuous movements of his body and upper extremities. Cardiovascular-regular rate and rhythm without murmur or ectopy Lungs-clear to auscultation, chest wall stable without crepitus or subcu emphysema Abdomen-normoactive bowel sounds, soft, nontender, no rebound or rigidity, no peritoneal signs. Extremities-intact ?4, normal range of motion, normal pulses, atraumatic] Test Results: [EKG obtained showed atrial fibrillation with a ventricular rate of 104 bpm with no acute ST segment changes. CBC with differential count of 8.9, hemoglobin 12, hematocrit 37, placed to 87. Chemistries unremarkable. Urinalysis was normal. CT scan of the brain without contrast showed nothing acute.] Emergency Department Course and Treatment: [Was placed on a monitor technician. Patient was medicated initially with Geodon 20 mg IM. Patient continued to be quite agitated and was given Haldol 5 mg IM.] Treatment Plan: [Admit] Disposition: [Admit] Impression: Mental status change Agitation Dementia A. fib-chronic Parkinson's] This note was generated with Proximetryation software. It may contain incorrect words, spelling, and punctuation that were not noted in review of the chart prior to signing ED Disposition - Plan for ED Patient: Referrals: Cristobal Robledo DO [Primary Care Provider] -
--- NOTE | 2019-04-04 22:16 | PCM.HP.STD ---
History of Present Illness The patient is a 69 year old M [] Past Medical History Past Medical History (Chronic Problems): Chronic Problems (Last Updated 06/11/18 @ 16:28 by Nandini Luciano) Lewy body dementia with behavioral disturbance (Chronic) Parkinson's disease (Chronic) Chronic atrial fibrillation (Chronic) Diastolic dysfunction (Chronic) Nonrheumatic aortic (valve) insufficiency (Chronic) Bicuspid aortic valve (Chronic) Atrial flutter (Chronic) pulmonary vein isolation , cardioversion 1999, 2007,2008, 2014 Medical History: Medical History (Last Updated 06/11/18 @ 16:28 by Nandini Luciano) Diastolic dysfunction (Chronic) I51.89 Nonrheumatic aortic (valve) insufficiency (Chronic) I35.1 Bicuspid aortic valve (Chronic) Q23.1 Atrial flutter (Chronic) I48.92 pulmonary vein isolation , cardioversion 1999, 2007,2008, 2014 Asthma J45.909 Chest discomfort R07.89 Fatigue R53.83 Allergies gentamicin [Gentamicin] Allergy (Verified 03/20/19 09:51) Unknown hydrocodone bitartrate [From Vicodin] Allergy (Verified 03/20/19 09:51) Itching morphine Allergy (Verified 03/20/19 09:51) Itching oxycodone Allergy (Verified 03/20/19 09:51) Itching Home Medications: Ambulatory Orders Medication Instructions Recorded carbidopa 25 mg-levodopa 100 mg 1 tab PO 4X/DAY tab 08/29/17 tablet escitalopram oxalate 10 mg tablet 10 mg PO QHS 08/29/17 carbidopa 10 mg-levodopa 100 mg 1 tab PO 4X/DAY 30 Days #120 08/31/17 tablet rivastigmine 1 patch TRANSDERMAL DAILY 30 Days 08/31/17 #30 methotrexate sodium 2.5 mg tablet 15 mg PO SA 05/29/18 Albuterol Sulfate [Proventil Hfa] 2 puff IH Q4H PRN PRN 08/02/18 Metaxalone [Skelaxin] 800 mg PO DAILY PRN PRN 08/02/18 Pyridoxine HCl (Vitamin B6) 200 mg PO DAILY 08/02/18 [Vitamin B-6] metoprolol tartrate 25 mg tablet 25 mg PO BID #180 tab 11/06/18 tramadol 50 mg tablet 50 mg PO DAILY PRN 11/26/18 Pantoprazole Sodium [Protonix] 40 mg PO DAILY 03/20/19 rivaroxaban 20 mg tablet 20 mg PO DAILY #90 tab 03/21/19 Quetiapine Fumarate [Seroquel] 50 mg PO BID #60 tab 03/22/19 Surgical History: Surgical History (Last Updated 06/11/18 @ 16:28 by Nandini Luciano) H/O repair of rotator cuff (Resolved) Z98.890 History of arthroscopy of knee (Resolved) Z98.890 History of lumbar surgery (Resolved) Z98.890 History of tonsillectomy and adenoidectomy (Resolved) Z98.890 Hx of appendectomy (Resolved) Z90.49 Hx of cholecystectomy (Resolved) Z90.49 Hx of hernia repair (Resolved) Z98.890, Z87.19 Surgical History: appendectomy, cholecystectomy, rotator cuff repair, - - Hernia repair, Foot surgery, Ablation. Psychiatric History: Anxiety Smoking Status: Never smoker - *Family History Paternal History Items: - - Patient does not know as he is adopted - Physical Exam Vitals/I&O's: Vital Signs Temp Pulse Resp BP Pulse Ox 97.8 F 97 16 162/101 H 97 04/04/19 18:29 04/04/19 20:50 04/04/19 20:50 04/04/19 20:50 04/04/19 18:29 Oxygen Delivery Method Room Air Weight: 82.7 kg Body Mass Index (BMI) 29.4 Laboratory Results 04/04/19 18:43: WBC 8.9, RBC 3.61 L, Hgb 12.1 L, Hct 36.7 L, MCV 101.7 H, MCH 33.5 H, MCHC 33.0, RDW Std Deviation 48.6 H, RDW Coeff of Declan 13.1, Plt Count 289, MPV 11.1, Immature Gran % (Auto) 1.300 H, Neut % (Auto) 81.3 H, Lymph % (Auto) 8.3 L, Hardin % (Auto) 7.4, Eos % (Auto) 1.3, Baso % (Auto) 0.4, Absolute Neuts (auto) 7.2, Absolute Lymphs (auto) 0.74 L, Nucleated RBC % 0 04/04/19 18:43: Sodium 141, Potassium 3.9, Chloride 108 H, Carbon Dioxide 25.0, Anion Gap 8, BUN 21 H, Creatinine 0.88, Estim Creat Clear Calc 72.50, Est GFR (MDRD) Af Amer 111, Est GFR (MDRD) Non-Af 92, BUN/Creatinine Ratio 23.9 H, Glucose 122 H, Calcium 8.8, Troponin I < 0.015 04/04/19 20:50: Urine Color Yellow, Urine Clarity Clear, Urine pH 6.5, Ur Specific [place] 1.010, Urine Protein Negative, Urine Glucose (UA) Normal, Urine Ketones Negative, Urine Occult Blood Negative, Urine Nitrite Negative, Urine Bilirubin Negative, Urine Urobilinogen Normal, Ur Leukocyte Esterase Negative, Urine RBC 0 SEEN, Urine WBC 0 SEEN, Ur Squamous Epith Cells 0 SEEN, Urine Bacteria 0 SEEN, Urine Mucus 0 SEEN Current Medications Sodium Chloride () 1,000 mls @ 150 mls/hr IV .Q6H40M [facility] Assessment/Plan All Active Problems (Last Updated 06/11/18 @ 16:28 by Nandini Luciano) Constipation (Acute) Toxic metabolic encephalopathy (Acute) H/O repair of rotator cuff (Resolved) History of arthroscopy of knee (Resolved) History of lumbar surgery (Resolved) History of tonsillectomy and adenoidectomy (Resolved) Hx of appendectomy (Resolved) Hx of cholecystectomy (Resolved) Hx of hernia repair (Resolved)
[2019-04-04 22:44] VITALS: BP 131/103; PULSE 72; RESP 16
[2019-04-04] MEDS: 0.9% Normal Saline 1,000 ML 150 ML IV (22:45)
--- NOTE | 2019-04-05 00:30 | ED.VISSUMM ---
- ER Visit Summary Date of Service: 04/05/19 Chief Complaint: [Addendum to initial dictation] History of Present Illness: The patient is a 69 M [presented with mental status change and increased delirium. Patient was evaluated by admitting physician who recommended that patient be transferred to [facility] facility Patient will be turned over to evening physician awaiting evaluation by crisis and final disposition] Physical Examination: [] Test Results: [] Emergency Department Course and Treatment: [] Treatment Plan: [] Disposition: [Pending] Impression: [Mental status change Delirium and mechanical fall Atrial fibrillation-chronic] This note was generated with OneWed (Formerly [employer]) dictation software. It may contain incorrect words, spelling, and punctuation that were not noted in review of the chart prior to signing ED Disposition - Plan for ED Patient: Referrals: Cristobal Robledo DO [Primary Care Provider] -
--- NOTE | 2019-04-05 01:12 | ED.RN ---
[facility] CALLED AND REPORTED THAT IF PT RECEIVES ATIVAN IT WILL DELAY HIS ABILITY TO BE TRANSPORTED TO [facility] FOR FOUR HOURS. THERE CURRENTLY IS A BED AVAILABLE PER [facility]IE [facility] [employer] OPERATOR. CASIE WILL BE CALLING FOR TRANSPORT. DR. JHAVERI INFORMED OF SAME.
[2019-04-05 01:31] VITALS: BP 146/101; PULSE 84; RESP 18; O2SAT 98
--- NOTE | 2019-04-05 01:33 | ED.RN ---
THIS NURSE CALLED HUY EARL, OF PT, INFORMED HER THAT PT IS BEING TRANSPORTED TO [facility] IN [place] TODAY AROUND [id number].
[2019-04-05 01:40] VITALS: BP 146/101; PULSE 84; RESP 18; O2SAT 98
[2019-04-05 02:14] VITALS: BP 117/80; PULSE 82; RESP 18; O2SAT 97
== END 2019-04-05 03:12 ==
PROVIDERS: Emergency Provider Emergency Medicine; Family Provider Family Medicine; PCP Family Medicine; Referring Provider Hospitalist
DX: R41.82 Altered mental status, unspecified (principal); G20 Parkinson's disease; F02.81 Dementia in other diseases classified elsewhere, unspecified severity, with behavioral disturbance; I48.91 Unspecified atrial fibrillation; Z79.02 Long term (current) use of antithrombotics/antiplatelets
CPT/HCPCS: 70450; 80048; 81001; 84484; 85025; 93005; 96360; 96361; 96372; 99285; J7030; A4216; J3486

== ENCOUNTER → 2019-05-16 | Outpatient (CLI) | payer MEDICARE, OTHER, SELFPAY ==
[2019-05-16 15:42] LABS: Absolute Lymphocyte Count 0.52 X10^3/uL (0.83-4.51); Absolute Neutrophil Count 7.9 X10^3/uL (2.0-7.7); Basophil# 0.04 X10^3/uL; Basophil% 0.4 % (0-1); Eosinophil# 0.28 X10^3/uL; Hematocrit 28.2 % (40-54); Hemoglobin 8.6 g/dL (13.0-16.5); Lymphocyte # 0.52 X10^3/ul (4.0); Lymphocyte % 5.5 % (19-41); Mean Corp Hgb Conc 30.5 g/dL (32-36); Mean Corpuscular Hgb 32.6 pg (27.0-32.0); Mean Corpuscular Volume 106.8 fL (80-94); Mean Platelet Vol. 10.5 fl (6.2-12.0); Monocyte# 0.64 X10^3/uL; Monocyte% 6.8 % (0-10); NRBC Flagged by Analyzer 0 % (0-5); Neutrophil # 7.86 X10^3/uL (2.7-7.7); Neutrophil % 83.1 % (47-70); POSITIVE DIFFERENTIAL YES; Platelet Count 369 K/mm3 (150-450); RBC Distribution Width CV 15.2 % (11.6-14.6); Red Blood Count 2.64 M/mm3 (4.6-6.2); White Blood Count 9.5 K/mm3 (4.4-11.0)
[2019-05-16 17:16] LABS: Differential Indicated SCAN CRITERIA MET
[2019-05-16 17:17] LABS: Anisocytosis 1+; Macrocytosis 1+; Platelet Estimate ADEQUATE (ADEQ)
== END | disposition home or self-care (01) ==
LOC: BFHLAB 13:43
PROVIDERS: PCP Family Medicine; Visit Provider Family Medicine
DX: D64.9 Anemia, unspecified (principal)
CPT/HCPCS: 36415; 85025

== ENCOUNTER 2020-03-25 12:43 | Inpatient (IN) | payer MEDICARE, OTHER, SELFPAY ==
[2019-12-30 10:07] VITALS: BMI 28.3
[2020-03-25 12:44] VITALS: BP 125/78; PULSE 80; RESP 16; TEMP 36.3; BMI 27.1
--- NOTE | 2020-03-25 13:18 | EKG12_ITS ---
Test Reason : Blood Pressure : / mmHG Vent. Rate : 084 BPM Atrial Rate : 092 BPM P-R Int : 000 ms QRS Dur : 084 ms QT Int : 386 ms P-R-T Axes : 000 019 037 degrees QTc Int : 456 ms Atrial fibrillation Abnormal ECG Confirmed by NOEL FORMAN, DENA ([id number]), school photograph editor DIANN FLORES ([id number]) on 03/27/2020 2:03:24 PM Referred By: HAN Confirmed By:DENA COHEN MD
--- NOTE | 2020-03-25 13:18 | CT_ITS ---
STUDY: CT BRAIN WITHOUT CONTRAST REASON FOR EXAM: Male, 70 years old. MENTAL STATUS CHANGE. DEMENTIA AND PARKINSONS RADIATION DOSAGE (If Supplied By Facility): CTDIvol = ( 44.99 ) mGy, DLP = ( 1339.65 ) mGycm TECHNIQUE: Transaxial CT imaging of the brain was performed without administration of intravenous contrast material. Individualized dose optimization techniques were used for this CT. COMPARISON: Comparison is made with prior study dated 04/04/2019. FINDINGS: Normal soft tissue structures. Normal calvarium. There is mild cerebral atrophy with widening of the extra-axial spaces and ventricular dilatation. There are areas of decreased attenuation within the white matter tracts of the supratentorial brain, consistent with microvascular disease changes. Normal basal ganglia and thalami. Normal brainstem. Normal cerebellum. There is no intracranial hemorrhage. There are no findings of an acute ischemic infarction. Normal visualized paranasal sinuses. CT/Brain/Head without Contrast IMPRESSION: Chronic involutional changes of the brain. Electronically Signed: Ishan Singh, at 15:29 EST , Service support ,
--- NOTE | 2020-03-25 13:22 | ED.VIS.GEN ---
History of Present Illness Chief Complaint: General Illness Informant: Patient, Significant Other Onset: Weeks - 1, worse in past 3d Context: Gradual Onset Timing: Continuous Quality: combative, agitated, more confused than usual Current Severity: Moderate Maximum Severity: Severe Worsened by: n/a Relieved by: n/a Associated Symptoms: was incontinent of urine at home Narrative: states patient has a history of dementia and Parkinson's, he is chronically confused but has been worse in the past week, and combative, agitated, she is not able to take care of him especially in the past 3 days once symptoms have really been worse. is also asking for help getting him into a [facility]. - Past Medical History (1) Atrial flutter Status: Chronic Comment: pulmonary vein isolation , cardioversion 1999, 2007,2008, 2014 (2) Bicuspid aortic valve Status: Chronic (3) Chronic atrial fibrillation Status: Chronic (4) Diastolic dysfunction Status: Chronic (5) Lewy body dementia with behavioral disturbance Status: Chronic (6) Nonrheumatic aortic (valve) insufficiency Status: Chronic (7) Parkinson's disease Status: Chronic Past Medical History - Allergies and Home Meds Allergies/Adverse Reactions: Allergies gentamicin [Gentamicin] Allergy (Verified 12/30/19 09:26) Unknown hydrocodone bitartrate [From Vicodin] Allergy (Verified 12/30/19 09:26) Itching morphine Allergy (Verified 12/30/19 09:26) Itching oxycodone Allergy (Verified 12/30/19 09:26) Itching Primary Care Physician: Cristobal Robledo DO [Primary Care Provider] - Surgical History: appendectomy, cholecystectomy, rotator cuff repair, - - Hernia repair, Foot surgery, Ablation. Smoking Status: Never smoker - Family History Paternal Family History: Reports: - - Patient does not know as he is adopted Review of Systems ROS: Unable to Obtain - limited due to altered MS; see below General: Denies: Chills, Fever ENT: Reports: Rhinorrhea. Denies: Bilateral ear pain, Sore throat Cardiovascular: Denies: Chest pain, Heart racing Respiratory: Reports: Dyspnea - Only with significant coughing, Cough. Denies: Sputum Gastrointestinal: Denies: Abdominal pain, Nausea, Vomiting, Diarrhea Genitourinary: Reports: - - incontinence. Denies: Dysuria, Hematuria Musculoskeletal: Denies: Neck pain, Back pain, Swelling, Extremity Pain Skin: Denies: Rash, Wounds Neurological: Denies: Headache, Weakness Physical Exam Vital Signs/Narrative: Vital Signs Temp Pulse Resp BP 03/25/20 12:44 97.3 F L 80 16 125/78 H Inital Vital Signs reviewed: Yes General: Well nourished, Well developed, No Acute Distress Head: Normocephalic, Atraumatic Eyes: Perrl, EOMI ENT: Moist mucous membranes, No rhinorrhea Neck: Supple, Nontender, No lymphadenopathy, No JVD Cardiovascular: Regular rate, Regular rhythm, No murmurs. Negative for: Tachycardia Respiratory: No distress, CTA bilaterally, Chest nontender Abdomen: Soft, Nontender, Nondistended, Normal bowel sounds Back: Nontender, Normal Inspection Extremities: Nontender, No edema. Negative for: Calf Tenderness Skin: Normal color, No rash, No Trauma Neurological: Alert, Cranial nerves II-XII grossly intact, Normal Strength, Normal Sensation, Disoriented - oriented to person Psychological: Normal affect, Normal Mood Diagnostic/Tx/Re-eval Chest X-Ray - ED: 1 View, Read by ED Physician, Left Infiltrate Clinical Impression(s) from Imaging Studies Brain CT 03/25/20 13:18 IMPRESSION: Chronic involutional changes of the brain. Electronically Signed: Ishan Singh, at 15:29 EST , Service support , Laboratory Tests 03/25/20 03/25/20 03/25/20 Range/Units 14:00 13:33 13:33 WBC (4.4-11.0) K/mm3 RBC (4.6-6.2) M/mm3 Hgb (13.0-16.5) g/dL Hct (40-54) % MCV (80-94) fL MCH (27.0-32.0) pg MCHC (32-36) g/dL RDW Std Deviation (35.1-43.9) fl RDW Coeff of Declan (11.6-14.6) % Plt Count (150-450) K/mm3 MPV (6.2-12.0) fl Immature Gran % (Auto) (0.0-0.9) % Neut % (Auto) (47-70) % Lymph % (Auto) (19-41) % [place] % (Auto) (0-10) % Eos % (Auto) (0-5) % Baso % (Auto) (0-1) % Absolute Neuts (auto) (2.0-7.7) X10^3/uL Absolute Lymphs (auto) (0.83-4.51) X10^3/uL Nucleated RBC % (0-5) % Diff Path Review Sodium 136 (136-145) mmol/L Potassium 3.6 (3.5-5.1) mmol/L Chloride 102 (98-107) mmol/L Carbon Dioxide 28.0 (21.0-32.0) mmol/L Anion Gap 6 (5-15) BUN 17 (7-18) mg/dL Creatinine 0.71 (0.70-1.30) mg/dL Estim Creat Clear Calc 65.18 ml/min Est GFR (MDRD) Af Amer 141 (>60) mL/min Est GFR (MDRD) Non-Af 116 (>60) mL/min BUN/Creatinine Ratio 23.8 H (10-20) RATIO Glucose 80 (74-106) mg/dL Lactic Acid 1.3 (0.4-1.9) mmol/L Calcium 8.9 (8.5-10.1) mg/dL Troponin I < 0.015 (<0.045) ng/mL Urine Color Yellow (Yellow) Urine Clarity Sl. Cloudy (Clear) Urine pH 6.5 (5.0 - 8.0) Ur Specific [place] 1.010 (1.002-1.030) Urine Protein Negative (Negative) mg/dl Urine Glucose (UA) Normal (Normal) mg/dl Urine Ketones Negative (Negative) mg/dl Urine Occult Blood Negative (Negative) /ul Urine Nitrite Negative (Negative) Urine Bilirubin Negative (Negative) mg/dL Urine Urobilinogen Normal (Normal) mg/dl Ur Leukocyte Esterase Negative (Negative) /ul Urine RBC 0 SEEN (0-5) /hpf Urine WBC 0 SEEN (0-5) /hpf Ur Squamous Epith Cells 0-5 SEEN (0-5) /hpf Urine Bacteria 0 SEEN (None Seen) /hpf Urine Mucus 0 SEEN (<or=2+) /hpf 03/25/20 Range/Units 13:33 WBC 4.3 L (4.4-11.0) K/mm3 RBC 4.02 L (4.6-6.2) M/mm3 Hgb 13.1 (13.0-16.5) g/dL Hct 39.9 L (40-54) % MCV 99.3 H (80-94) fL MCH 32.6 H (27.0-32.0) pg MCHC 32.8 (32-36) g/dL RDW Std Deviation 45.0 H (35.1-43.9) fl RDW Coeff of Declan 12.3 (11.6-14.6) % Plt Count 234 (150-450) K/mm3 MPV 11.1 (6.2-12.0) fl Immature Gran % (Auto) 1.200 H (0.0-0.9) % Neut % (Auto) 71.0 H (47-70) % Lymph % (Auto) 11.2 L (19-41) % Barren % (Auto) 15.9 H (0-10) % Eos % (Auto) 0.5 (0-5) % Baso % (Auto) 0.2 (0-1) % Absolute Neuts (auto) 3.1 (2.0-7.7) X10^3/uL Absolute Lymphs (auto) 0.48 L (0.83-4.51) X10^3/uL Nucleated RBC % 0 (0-5) % Diff Path Review May foll Sodium (136-145) mmol/L Potassium (3.5-5.1) mmol/L Chloride (98-107) mmol/L Carbon Dioxide (21.0-32.0) mmol/L Anion Gap (5-15) BUN (7-18) mg/dL Creatinine (0.70-1.30) mg/dL Estim Creat Clear Calc ml/min Est GFR (MDRD) Af Amer (>60) mL/min Est GFR (MDRD) Non-Af (>60) mL/min BUN/Creatinine Ratio (10-20) RATIO Glucose (74-106) mg/dL Lactic Acid (0.4-1.9) mmol/L Calcium (8.5-10.1) mg/dL Troponin I (<0.045) ng/mL Urine Color (Yellow) Urine Clarity (Clear) Urine pH (5.0 - 8.0) Ur Specific [place] (1.002-1.030) Urine Protein (Negative) mg/dl Urine Glucose (UA) (Normal) mg/dl Urine Ketones (Negative) mg/dl Urine Occult Blood (Negative) /ul Urine Nitrite (Negative) Urine Bilirubin (Negative) mg/dL Urine Urobilinogen (Normal) mg/dl Ur Leukocyte Esterase (Negative) /ul Urine RBC (0-5) /hpf Urine WBC (0-5) /hpf Ur Squamous Epith Cells (0-5) /hpf Urine Bacteria (None Seen) /hpf Urine Mucus (<or=2+) /hpf - Rhythm Strip Rhythm Strip: A-fib Rate: 84 Ectopy: None - EKG Initial EKG Interpretation: No Acute Injury Pattern, Atrial Fibrillation - rate-controlled - Medical Decision Making Patient remained cooperative, his work-up appears to show a left lower lobe pneumonia with a negative head CT and otherwise negative work-up including urine, cardiac showing stable chronic atrial fibrillation, and renal function. Plan is to start empiric antibiotics and admit him medically for treatment and placement. Covid rapid antigen test returned negative. ED Disposition - Plan for ED Patient: Disposition: Acute Care [facility] Diagnosis: Delirium due to another medical condition, Pneumonia, Lewy body dementia with behavioral disturbance, Parkinson's disease Referrals: Cristobal Robledo DO [Primary Care Provider] -
[2020-03-25 14:03] VITALS: BP 149/97; PULSE 81; RESP 17; TEMP 36.3; O2SAT 97
[2020-03-25 14:06] LABS: Bacteria 0 SEEN /hpf (None Seen); Mucous, Urine 0 SEEN /hpf (<or=2+); Red Blood Cells-Urine 0 SEEN /hpf (0-5); White Blood Cells 0 SEEN /hpf (0-5)
[2020-03-25] MEDS: 0.9% Normal Saline 1,000 ML 150 ML IV (14:11)
[2020-03-25 14:17] LABS: Absolute Lymphocyte Count 0.48 X10^3/uL (0.83-4.51); Absolute Neutrophil Count 3.1 X10^3/uL (2.0-7.7); Basophil# 0.01 X10^3/uL; Basophil% 0.2 % (0-1); Eosinophil# 0.02 X10^3/uL; Eosinophils% 0.5 % (0-5); Hematocrit 39.9 % (40-54); Hemoglobin 13.1 g/dL (13.0-16.5); Lymphocyte # 0.48 X10^3/ul (4.0); Lymphocyte % 11.2 % (19-41); Mean Corp Hgb Conc 32.8 g/dL (32-36); Mean Corpuscular Hgb 32.6 pg (27.0-32.0); Mean Corpuscular Volume 99.3 fL (80-94); Mean Platelet Vol. 11.1 fl (6.2-12.0); Monocyte# 0.68 X10^3/uL; Monocyte% 15.9 % (0-10); NRBC Flagged by Analyzer 0 % (0-5); Neutrophil # 3.05 X10^3/uL (2.7-7.7); POSITIVE DIFFERENTIAL YES; Platelet Count 234 K/mm3 (150-450); RBC Distribution Width CV 12.3 % (11.6-14.6); Red Blood Count 4.02 M/mm3 (4.6-6.2); White Blood Count 4.3 K/mm3 (4.4-11.0)
[2020-03-25 14:21] LABS: Differential Indicated SCAN CRITERIA MET
[2020-03-25 14:32] LABS: Anion Gap 6 (5-15); BUN 17 mg/dL (7-18); BUN/Creat Ratio 23.8 RATIO (10-20); Calcium,Total 8.9 mg/dL (8.5-10.1); Chloride 102 mmol/L (98-107); Creatinine, Serum 0.71 mg/dL (0.70-1.30); EST Glomerular Filtration Rate 116 mL/min (>60); Est Glom Filt Rate - Afr Amer 141 mL/min (>60); Estimated Creatinine Clearance 65.18 ml/min; Glucose 80 mg/dL (74-106); Potassium 3.6 mmol/L (3.5-5.1); Sodium Level 136 mmol/L (136-145)
[2020-03-25 14:37] LABS: Lactic Acid 1.3 mmol/L (0.4-1.9)
[2020-03-25 15:11] LABS: Color, Urine Yellow (Yellow); Glucose, Dipstick Normal (Normal); Ketone-Dipstick Negative (Negative); Leukocyte Esterase-Dipstick Negative /ul (Negative); Nitrite-Dipstick Negative (Negative); Occult Blood-Urine Negative /ul (Negative); Protein-Dipstick Negative (Negative); Urine Bilirubin Dipstick Negative (Negative); Urine Clarity Sl. Cloudy (Clear); Urine Urobilinogen Normal (Normal); Urine pH 6.5 (5.0 - 8.0)
[2020-03-25 15:22] LABS: Squamous Epithelial Cells - UA 0-5 SEEN /hpf (0-5)
--- NOTE | 2020-03-25 15:25 | RAD_ITS ---
STUDY: X-RAY CHEST REASON FOR EXAM: Male, 70 years old. COUGH TECHNIQUE: Single AP portable view of the chest. COMPARISON: Comparison is made with prior study dated 03/20/2019. FINDINGS: EKG electrodes are seen. Patchy left lower lobe infiltrate. There is no demonstrated pleural abnormality. Normal size heart. Normal mediastinum and edward. Normal visualized pulmonary arteries. There is atherosclerotic tortuosity of the aortic arch and descending thoracic aorta. There are degenerative changes of the visualized thoracic spine. There is evidence of prior screw and morelia fixation of the lower thoracic and upper lumbar spine. There is degenerative osteoarthritis of the bilateral shoulders. There is no demonstrated abnormality of the visualized soft tissue structures of the upper abdomen. RAD/Chest 1 View (Portable) IMPRESSION: Patchy left lower lobe infiltrate. Electronically Signed: Ishan Singh, at 15:39 EST , Service support ,
--- NOTE | 2020-03-25 15:43 | HP.PCM_ITS ---
History of Present Illness Date of Admission: 03/25/20 Chief Complaint: Confusion The patient is a 70 year old M Parkinson's disease, Lewy body dementia: Mild chronic atrial fibrillation, chronic diastolic CHF who comes in with complaints of confusion, increased behavioral disturbances over one week, worsening over 3 days resulting in his being unable to take care of him. He is up all night, screaming, throwing things, rearranging things. He started with URI 1 week and half. No fevers. No sick contacts. Vitals in the ED showed temperature 97.3 F, heart rate 80, blood pressure 125/78, respiratory rate 16, SPO2 97% on room air. WBC count is 4.3, 13.1, platelet count 234, BMP is unremarkable. UA was slightly cloudy, nitrite negative, WBC count 0, leukocyte esterase negative. Chest x-ray showed acute left lower lobe infiltrate. Past Medical History Past Medical History (Chronic Problems): Chronic Problems (Last Reviewed 06/25/19 @ 10:[address] Ole Bassett MD) Lewy body dementia with behavioral disturbance (Chronic) Parkinson's disease (Chronic) Chronic atrial fibrillation (Chronic) Diastolic dysfunction (Chronic) Nonrheumatic aortic (valve) insufficiency (Chronic) Bicuspid aortic valve (Chronic) Atrial flutter (Chronic) pulmonary vein isolation , cardioversion 1999, 2007,2008, 2014 Medical History: Medical History (Last Reviewed 06/25/19 @ 10:[address] Ole Bassett MD) Diastolic dysfunction (Chronic) I51.89 Nonrheumatic aortic (valve) insufficiency (Chronic) I35.1 Bicuspid aortic valve (Chronic) Q23.1 Atrial flutter (Chronic) I48.92 pulmonary vein isolation , cardioversion 1999, 2007,2008, 2014 Asthma J45.909 Chest discomfort R07.89 Fatigue R53.83 Allergies gentamicin [Gentamicin] Allergy (Verified 12/30/19 09:26) Unknown hydrocodone bitartrate [From Vicodin] Allergy (Verified 12/30/19 09:26) Itching morphine Allergy (Verified 12/30/19 09:26) Itching oxycodone Allergy (Verified 12/30/19 09:26) Itching Home Medications: Ambulatory Orders Medication Instructions Recorded carbidopa 25 mg-levodopa 100 mg 1 tab PO 4X/DAY tab 08/29/17 tablet escitalopram oxalate 10 mg tablet 10 mg PO QHS 08/29/17 carbidopa 10 mg-levodopa 100 mg 1 tab PO 4X/DAY 30 Days #120 08/31/17 tablet methotrexate sodium 2.5 mg tablet 15 mg PO SA@1030 05/29/18 Albuterol Sulfate [Proventil Hfa] 2 puff IH Q4H PRN PRN 08/02/18 oxybutynin chloride 10 mg 10 mg PO DAILY@62906/25/19 tablet,extended release 24 hr rivastigmine 13.3 mg TRANSDERMAL DAILY 06/25/19 loratadine 10 mg tablet 10 mg PO DAILY@0630 12/30/19 metoprolol tartrate 25 mg tablet 25 mg PO BID tab 12/30/19 Carbidopa/Levodopa 50/200 [Sinemet 50 mg PO QHS@2230 03/25/20 CR 50/200] Cholecalciferol (Vitamin D3) 50,000 units PO TU@1030 03/25/20 [Vitamin D3] Pantoprazole Sodium [Protonix] 40 mg PO DAILY 03/25/20 Quetiapine Fumarate [Seroquel] 100 mg PO QHS@2230 03/25/20 Surgical History: Surgical History (Last Reviewed 06/25/19 @ 10:[address] Ole Bassett MD) H/O repair of rotator cuff (Resolved) Z98.890 History of arthroscopy of knee (Resolved) Z98.890 History of lumbar surgery (Resolved) Z98.890 History of tonsillectomy and adenoidectomy (Resolved) Z98.890 Hx of appendectomy (Resolved) Z90.49 Hx of cholecystectomy (Resolved) Z90.49 Hx of hernia repair (Resolved) Z98.890, Z87.19 Surgical History: appendectomy, cholecystectomy, rotator cuff repair, - - Hernia repair, Foot surgery, Ablation. Psychiatric History: Anxiety Lives: Spouse/ Significant Other Smoking Status: Never smoker Tobacco Use: Non-smoker Alcohol: None Drugs: None - *Family History Paternal History Items: - - Patient does not know as he is adopted Maternal History Items: Unknown Review of Systems Unable to obtain accurate/complete ROS d/t: Cannot reliably obtain on account of confusion VTE Information - Inpt Only VTE Present on Admission: No VTE Pharm Prophylaxis ordered?: Yes Patient Problems: Active and Suspected Problems (Last Reviewed 06/25/19 @ 10:[address] Ole Bassett MD) Delirium due to another medical condition (Acute) Pneumonia (Acute) - Physical Exam Vitals/I&O's: Vital Signs Temp Pulse Resp BP Pulse Ox 97.3 F L 81 17 149/97 H 97 03/25/20 14:03 03/25/20 14:03 03/25/20 14:03 03/25/20 14:03 03/25/20 14:03 Oxygen Delivery Method Room Air Weight: 78.471 kg Body Mass Index (BMI) 27.1 General: Alert, Oriented x3, Cooperative, No apparent distress HEENT: Atraumatic, PERRLA, EOMI, Normocephalic Oral: Moist Mucosa Neck: Supple Lungs: Diminished Cardiovascular: Regular rate, Regular Rhythm, Normal S1, Normal S2, No murmurs Abdomen: Bowel Sounds Present, Soft, Non Tender, Non-Distended, No Hepato- splenomegaly Extremities: No edema Skin: No rashes Musculoskeletal: No Tenderness to Palpation of Joints or Extremities Lymphatic: No Cervical, Supraclavicular, or Inguinal Adenopathy Neurological: Cranial nerves II-XII grossly intact, Neuro grossly intact Psych/Mental Status: Normal Affect, Appropriate Microbiology Past 72 Hours 03/25/20 14:15 Mucosa - Nose SARS-CoV-2 Antigen (Rapid) - Final Laboratory Results 03/25/20 13:33: WBC 4.3 L, RBC 4.02 L, Hgb 13.1, Hct 39.9 L, MCV 99.3 H, MCH 32.6 H, MCHC 32.8, RDW Std Deviation 45.0 H, RDW Coeff of Declan 12.3, Plt Count 234, MPV 11.1, Immature Gran % (Auto) 1.200 H, Neut % (Auto) 71.0 H, Lymph % (Auto) 11.2 L, [place] % (Auto) 15.9 H, Eos % (Auto) 0.5, Baso % (Auto) 0.2, Absolute Neuts (auto) 3.1, Absolute Lymphs (auto) 0.48 L, Nucleated RBC % 0, Diff Path Review August03/25/20 13:33: Sodium 136, Potassium 3.6, Chloride 102, Carbon Dioxide 28.0, Anion Gap 6, BUN 17, Creatinine 0.71, Estim Creat Clear Calc 65.18, Est GFR (MDRD) Af Amer 141, Est GFR (MDRD) Non-Af 116, BUN/Creatinine Ratio 23.8 H, Glucose 80, Calcium 8.9, Troponin I < 0.015 03/25/20 13:33: Lactic Acid 1.3 03/25/20 14:00: Urine Color Yellow, Urine Clarity Sl. Cloudy, Urine pH 6.5, Ur Specific [place] 1.010, Urine Protein Negative, Urine Glucose (UA) Normal, Urine Ketones Negative, Urine Occult Blood Negative, Urine Nitrite Negative, Urine Bilirubin Negative, Urine Urobilinogen Normal, Ur Leukocyte Esterase Negative, Urine RBC 0 SEEN, Urine WBC 0 SEEN, Ur Squamous Epith Cells 0-5 SEEN, Urine Bacteria 0 SEEN, Urine Mucus 0 SEEN Current Medications Sodium Chloride () 1,000 mls @ 150 mls/hr IV .[id number] CASANDRA Last Admin: 03/25/20 14:11 Dose: 150 mls/hr Documented by: Azithromycin 500 mg/ Dextrose 255 mls @ 250 mls/hr IV X1 ONE Stop: 03/25/20 16:35 Ceftriaxone Sodium (Rocephin) 1 gm in 50 mls @ 100 mls/hr IV X1 ONE Stop: 03/25/20 16:03 Assessment/Plan All Active Problems (Last Reviewed 06/25/19 @ 10:[address] Ole Bassett MD) Delirium due to another medical condition (Acute) Pneumonia (Acute) Constipation (Acute) Toxic metabolic encephalopathy (Acute) H/O repair of rotator cuff (Resolved) History of arthroscopy of knee (Resolved) History of lumbar surgery (Resolved) History of tonsillectomy and adenoidectomy (Resolved) Hx of appendectomy (Resolved) Hx of cholecystectomy (Resolved) Hx of hernia repair (Resolved) 1. Acute delirium in a patient with baseline cognitive impairment from [place] son's disease and Lewy body dementia This is likely secondary to current pneumonia Continue to manage expectantly 2. Pneumonia, chest x-ray showed left lower lobe infiltrate Started on IV ceftriaxone and azithromycin Continue same 3. Hypertension/history of atrial flutter/chronic atrial fibrillation/valvular heart disease Continue on metoprolol. Patient is not on anticoagulation on account of unsteady gait and history of falls 4. Parkinson's disease/Lewy body dementia Continue on carbidopa/levodopa, Lexapro, Seroquel, rivastigmine 5. Debility related to the above; is unable to care for him long-term placement requested park services specialist consult 6. DVT PPx- Heparin SC 7. Code status - DNR-CCA, no intubation Inpatient E&M: 04075 Init Hosp L3 Procedures: 74699 Advncd Care Plan 30 Min
[2020-03-25] MEDS: Ceftriaxone 1 GM/50 ML BAG IV (16:10)
[2020-03-25 17:22] VITALS: BP 143/95; PULSE 86; RESP 15; TEMP 36.6; O2SAT 94
[2020-03-25 18:11] VITALS: BP 120/84; PULSE 85; RESP 18; TEMP 36.6; O2SAT 97; BMI 26.4
[2020-03-25 21:31] VITALS: BP 120/84; PULSE 85
[2020-03-25] MEDS: QUEtiapine 100 MG Tablet PO (21:31)
[2020-03-25] MEDS: Metoprolol Tartrate 25 MG Tablet PO (21:31)
[2020-03-25] MEDS: Escitalopram Oxalate 10 MG Tablet PO (21:31)
[2020-03-25] MEDS: Heparin Injection (Vial) 5,000 UNIT/ML VIAL 5000 UNIT SC (21:31)
[2020-03-25] MEDS: CARBIDOPA/LEVODOPA CR 50/200 Tablet PO (21:33)
[2020-03-25 22:16] VITALS: BP 128/81; PULSE 84; RESP 18; TEMP 36.9; O2SAT 99
[2020-03-26] VITALS (7 sets, daily range): BP systolic 89–154; BP diastolic 55–88; PULSE 60–92; RESP 16–18; TEMP 36.6–37.6; O2SAT 94–97
[2020-03-26] MEDS: 0.9% Normal Saline 1,000 ML 150 ML IV ×4 (00:12→23:42)
[2020-03-26] MEDS: Loratadine 10 MG Tablet PO (05:08)
[2020-03-26] MEDS: Heparin Injection (Vial) 5,000 UNIT/ML VIAL 5000 UNIT SC ×3 (05:08→22:51)
[2020-03-26] MEDS: Tolterodine Tartrate 2 MG CAP.SA PO (05:09)
[2020-03-26] MEDS: Carbidopa/Levodopa 10/100 Tablet PO ×4 (05:09→18:27)
[2020-03-26] MEDS: Carbidopa/Levodopa 25/100 Tablet PO ×4 (05:09→18:27)
[2020-03-26 05:52] LABS: Absolute Lymphocyte Count 0.56 X10^3/uL (0.83-4.51); Absolute Neutrophil Count 3.1 X10^3/uL (2.0-7.7); Basophil# 0.02 X10^3/uL; Basophil% 0.5 % (0-1); Eosinophil# 0.03 X10^3/uL; Eosinophils% 0.7 % (0-5); Hematocrit 35.4 % (40-54); Hemoglobin 11.8 g/dL (13.0-16.5); Lymphocyte # 0.56 X10^3/ul (4.0); Lymphocyte % 13.4 % (19-41); Mean Corp Hgb Conc 33.3 g/dL (32-36); Mean Corpuscular Hgb 32.7 pg (27.0-32.0); Mean Corpuscular Volume 98.1 fL (80-94); Mean Platelet Vol. 10.4 fl (6.2-12.0); Monocyte# 0.49 X10^3/uL; Monocyte% 11.7 % (0-10); NRBC Flagged by Analyzer 0 % (0-5); Neutrophil # 3.05 X10^3/uL (2.7-7.7); POSITIVE DIFFERENTIAL YES; Platelet Count 220 K/mm3 (150-450); RBC Distribution Width CV 12.1 % (11.6-14.6); RBC Distribution Width SD 43.6 fl (35.1-43.9); Red Blood Count 3.61 M/mm3 (4.6-6.2); White Blood Count 4.2 K/mm3 (4.4-11.0)
[2020-03-26 05:53] LABS: Differential Indicated SCAN CRITERIA MET
[2020-03-26 06:09] LABS: Differential Comment SCANNED
[2020-03-26 06:10] LABS: Acanthocytes RARE; Ovalocyte RARE
[2020-03-26 06:17] LABS: ALB/GLOB Ratio 1.1 RATIO (0.9-2.4); AST(SGOT) 23 U/L (15-37); Alanine Aminotransfer ALT/SGPT 8 U/L (16-61); Albumin, Serum 2.9 g/dL (3.2-5.0); Alkaline Phosphatase 65 U/L (45-117); Anion Gap 6 (5-15); BUN 12 mg/dL (7-18); Chloride 107 mmol/L (98-107); Creatinine, Serum 0.67 mg/dL (0.70-1.30); EST Glomerular Filtration Rate 126 mL/min (>60); Est Glom Filt Rate - Afr Amer 152 mL/min (>60); Estimated Creatinine Clearance 65.18 ml/min; Globulin 2.7 g/dL (2.2-4.2); Glucose 84 mg/dL (74-106); Potassium 3.3 mmol/L (3.5-5.1); Protein, Total 5.6 g/dL (6.4-8.2); Sodium Level 139 mmol/L (136-145)
--- NOTE | 2020-03-26 09:38 | PCM.PN.HOSP ---
Patient Problems: Active and Suspected Problems (Last Reviewed 06/25/19 @ 10:[address] Ole Bassett MD) Delirium due to another medical condition (Acute) Pneumonia (Acute) Reason for Visit: encephalopathy Subjective: confused. Vitals/I&O's: Vital Signs Temp Pulse Resp BP Pulse Ox 37.6 C H 92 18 136/72 H 95 03/26/20 04:15 03/26/20 04:15 03/26/20 04:15 03/26/20 04:15 03/26/20 04:15 Oxygen Delivery Method Room Air Weight: 76.5 kg Body Mass Index (BMI) 26.4 Intake and Output for Last 24 Hours 03/24/20 03/25/20 03/26/20 23:59 23:59 23:59 Intake Total 1305.0 / 1305.0 1120 / 1120 Output Total 600 / 600 Balance 1305.0 / 955.0 520 / 520 General: - - confused. slow responsive. slow to awake. oriented x3. HEENT: Atraumatic, PERRLA, Normocephalic Oral: Moist Mucosa, - - Blood on the right lateral tongue. Neck: No Nodes, Thyroid Normal Size and Texture Lungs: Clear to auscultation, Normal air movement, No rhonchi, No wheeze, No rales Cardiovascular: Regular rate, Regular Rhythm, Normal S1, Normal S2, No murmurs Abdomen: Bowel Sounds Present, Soft, Non Tender, Non-Distended, No Hepato-splenomegaly, Passing Flatus Extremities: No edema, No Calf Tenderness Skin: No rashes, No breakdown Neurological: Cranial nerves II-XII grossly intact, - Psych/Mental Status: Flat Affect Microbiology Past 72 Hours 03/25/20 14:15 Mucosa - Nose SARS-CoV-2 Antigen (Rapid) - Final Laboratory Results 03/25/20 13:33: WBC 4.3 L, RBC 4.02 L, Hgb 13.1, Hct 39.9 L, MCV 99.3 H, MCH 32.6 H, MCHC 32.8, RDW Std Deviation 45.0 H, RDW Coeff of Declan 12.3, Plt Count 234, MPV 11.1, Immature Gran % (Auto) 1.200 H, Neut % (Auto) 71.0 H, Lymph % (Auto) 11.2 L, [place] % (Auto) 15.9 H, Eos % (Auto) 0.5, Baso % (Auto) 0.2, Absolute Neuts (auto) 3.1, Absolute Lymphs (auto) 0.48 L, Nucleated RBC % 0, Diff Path Review May 03/25/20 13:33: Sodium 136, Potassium 3.6, Chloride 102, Carbon Dioxide 28.0, Anion Gap 6, BUN 17, Creatinine 0.71, Estim Creat Clear Calc 65.18, Est GFR (MDRD) Af Amer 141, Est GFR (MDRD) Non-Af 116, BUN/Creatinine Ratio 23.8 H, Glucose 80, Calcium 8.9, Troponin I < 0.015 03/25/20 13:33: Lactic Acid 1.3 03/25/20 14:00: Urine Color Yellow, Urine Clarity Sl. Cloudy, Urine pH 6.5, Ur Specific [place] 1.010, Urine Protein Negative, Urine Glucose (UA) Normal, Urine Ketones Negative, Urine Occult Blood Negative, Urine Nitrite Negative, Urine Bilirubin Negative, Urine Urobilinogen Normal, Ur Leukocyte Esterase Negative, Urine RBC 0 SEEN, Urine WBC 0 SEEN, Ur Squamous Epith Cells 0-5 SEEN, Urine Bacteria 0 SEEN, Urine Mucus 0 SEEN 03/26/20 05:37: WBC 4.2 L, RBC 3.61 L, Hgb 11.8 L, Hct 35.4 L, MCV 98.1 H, MCH 32.7 H, MCHC 33.3, RDW Std Deviation 43.6, RDW Coeff of Declan 12.1, Plt Count 220, MPV 10.4, Immature Gran % (Auto) 0.700, Neut % (Auto) 73.0 H, Lymph % (Auto) 13.4 L, [place] % (Auto) 11.7 H, Eos % (Auto) 0.7, Baso % (Auto) 0.5, Absolute Neuts (auto) 3.1, Absolute Lymphs (auto) 0.56 L, Nucleated RBC % 0, Differential Comment SCANNED, Diff Path Review August foll, Ovalocytes RARE, Acanthocytes (Spur) RARE 03/26/20 05:37: Sodium 139, Potassium 3.3 L, Chloride 107, Carbon Dioxide 26.0, Anion Gap 6, BUN 12, Creatinine 0.67 L, Estim Creat Clear Calc 65.18, Est GFR (MDRD) Af Amer 152, Est GFR (MDRD) Non-Af 126, BUN/Creatinine Ratio 18.0, Glucose 84, Calcium 8.0 L, Total Bilirubin 0.50, AST 23, ALT 8 L, Alkaline Phosphatase 65, Total Protein 5.6 L, Albumin 2.9 L, Globulin 2.7, Albumin/Globulin Ratio 1.1 Current Medications Acetaminophen (Acetaminophen 325 Mg Tablet) 650 mg PO Q6H PRN PRN PRN Reason: Pain Score 1-10/Temp > 100.7 F Albuterol Sulfate (Albuterol 2.5 Mg/3 Ml Vial.Neb.) 2.5 mg INHALATION Q4H PRN PRN PRN Reason: SOB &/OR WHEEZING Carbidopa/Levodopa (Carbidopa/Levodopa 10/100 Tablet) 1 tablet PO 0630,1030,1430,1830 [facility] Last Admin: 03/26/20 05:09 Dose: 1 tablet Documented by: Carbidopa/Levodopa (Carbidopa/Levodopa 25/100 Tablet) 1 tablet PO 0630,1030,1430,1830 [facility] Last Admin: 03/26/20 05:09 Dose: 1 tablet Documented by: Carbidopa/Levodopa (Carbidopa/Levodopa Cr 50/200 Tablet) 1 tablet PO QHS@2230 [facility] Last Admin: 03/25/20 21:33 Dose: 1 tablet Documented by: Ergocalciferol (Ergocalciferol 50,000 Unit Capsule) 50,000 unit PO TU@1030 [facility] Escitalopram Oxalate (Escitalopram Oxalate 10 Mg Tablet) 10 mg PO QHS [facility] Last Admin: 03/25/20 21:31 Dose: 10 mg Documented by: Heparin Sodium (Porcine) (Heparin Injection (Vial) 5,000 Unit/Ml Vial) 5,000 unit SC Q8 [facility] Last Admin: 03/26/20 05:08 Dose: 5,000 unit Documented by: Sodium Chloride () 1,000 mls @ 150 mls/hr IV .[id number] [facility] Last Admin: 03/26/20 06:54 Dose: 150 mls/hr Documented by: Sodium Chloride () 250 mls @ 15 mls/hr IV .[id number] PRN PRN Reason: Saline Flush Sodium Chloride () 250 mls @ 15 mls/hr IV .[id number] PRN PRN Reason: Additional IVPB Infusion Ceftriaxone Sodium (Rocephin) 1 gm in 50 mls @ 100 mls/hr IV Q24 [facility] Azithromycin 500 mg/ Dextrose 255 mls @ 250 mls/hr IV Q24 [facility] Loratadine (Loratadine 10 Mg Tablet) 10 mg PO DAILY@0630 [facility] Last Admin: 03/26/20 05:08 Dose: 10 mg Documented by: Methotrexate (Methotrexate 2.5 Mg Tablet) 15 mg PO SA@1030 [facility] Metoprolol Tartrate (Metoprolol Tartrate 25 Mg Tablet) 25 mg PO BID [facility] Last Admin: 03/25/20 21:31 Dose: 25 mg Documented by: Pantoprazole Sodium (Pantoprazole Sodium 40 Mg Tablet) 40 mg PO DAILY [facility] Quetiapine Fumarate (Quetiapine 100 Mg Tablet) 100 mg PO QHS@2230 [facility] Last Admin: 03/25/20 21:31 Dose: 100 mg Documented by: Rivastigmine (Rivastigmine 9.5mg Patch) 1 patch TD DAILY [facility] Rivastigmine (Rivastigmine 4.6 Mg Patch) 1 patch TD DAILY [facility] Sodium Chloride (0.9% Saline Lock 10 Ml Syringe) 10 - 40 ml IV UD PRN PRN Reason: SALINE FLUSH Tolterodine Tartrate (Tolterodine Tartrate 2 Mg Cap.Sa) 2 mg PO DAILY@0630 [facility] Last Admin: 03/26/20 05:09 Dose: 2 mg Documented by: Medical Necessity - Tobacco Use Smoking Status: Never smoker Tobacco Use: Non-smoker Assessment/Plan All Active Problems (Last Reviewed 06/25/19 @ 10:[address] Ole Bassett MD) Delirium due to another medical condition (Acute) Pneumonia (Acute) Constipation (Acute) Toxic metabolic encephalopathy (Acute) H/O repair of rotator cuff (Resolved) History of arthroscopy of knee (Resolved) History of lumbar surgery (Resolved) History of tonsillectomy and adenoidectomy (Resolved) Hx of appendectomy (Resolved) Hx of cholecystectomy (Resolved) Hx of hernia repair (Resolved) 1. Encephalopathy This may be a waxing and waning nature of the patient's known Lewy body dementia and Parkinson's disease. I discussed with the patient's today and that she has been noticing progressive change house attendant the past several weeks where he is confused, not knowing where the restroom is, not knowing how to turn on or off a light and not remembering her name. I explained to him the findings of his bloody tongue and inquired about seizures. She is unaware of any seizure-like activity. Will perform seizure work-up with brain MRI, EEG and neurology evaluation. Patient certainly would be at risk for seizures given his progressive brain diseases. I will hold off on any antiepileptic medications. 2. Lewy body dementia and Parkinson's disease His confirms that he has been diagnosed with both. Continue with Sinemet and rivastigmine Patient's is adamant that he not receive Haldol for any behavioral issues given the Lewy body dementia PT, OT and speech therapy 3. Left lower lobe pneumonia Continue with ceftriaxone and azithromycin 4. VTE prophylaxis Heparin 5. Disposition: When patient is discharged, his states that he is not to return home. Explained to her that we will look at custodial facilities. She also states that she does not want him going to a psychiatric facility. I informed her that was not something that I was actually considering anyways. Inpatient E&M: 29668 Subs Hosp L3
--- NOTE | 2020-03-26 09:50 | MRI_ITS ---
STUDY: MRI BRAIN WITHOUT CONTRAST REASON FOR EXAM: Male, 70 years old. confusion, combative, seizure activity, behavioral disturbances; hx Parkinson''s and Lewy body dementia TECHNIQUE: Standardized multiplanar fat and water weighted pulse sequences were obtained. COMPARISON: CT 03/25/2020, MRI 07/16/2015 FINDINGS: There is mild cerebral atrophy with widening of the extra-axial spaces and ventricular dilatation. There are a limited number of small white matter hyperintensities, distributed throughout the deep white matter tracts of the cerebral hemispheres, consistent with mild chronic white matter ischemic changes. There is no evidence for recent intracranial ischemia or other cause of cytotoxic edema on diffusion weighted imaging (DWI). Normal T2* images of the brain without demonstrated susceptibility artifact. There is no demonstrated hemosiderin stain. Normal bilateral basal ganglia. Normal thalami. There is no extra-axial fluid accumulation. Normal flow voids within the major intracranial circulation suggesting patency by spin echo criteria. Normal sella turcica, pituitary gland, infundibular stalk, optic chiasm and hypothalamus. Normal tectal plate and pineal gland. Normal midbrain, juju and medulla. Normal cerebellum. Normal basal cisterns. Normal bilateral temporal bones. Normal bilateral internal auditory canals. There are bilateral ocular lens implants with otherwise normal intraorbital contents. Normal visualized paranasal sinuses. Normal calvarium and skull base. Normal visualized soft tissue structures. Normal visualized upper cervical spine. MRI/Brain without Contrast IMPRESSION: Involutional changes of the brain, as described above. No acute infarct. Electronically Signed: Yury Oliveros MD at 16:42 EST Tel , Service support ,
[2020-03-26] MEDS: Ceftriaxone 1 GM/50 ML BAG IV (10:17)
[2020-03-26] MEDS: Pantoprazole Sodium 40 MG Tablet PO (10:17)
[2020-03-26] MEDS: Rivastigmine 9.5mg Patch 1 PATCH TD (10:25)
--- NOTE | 2020-03-26 10:30 | CASEMGMT ---
Addendum entered by Fawn Shine 03/26/20 13:04: AYAAN placed another call to pt's Kaya. Kaya states pt was living at home with her in a one story home. Kaya states there are two steps to enter. Kaya states he's not coming home. AYAAN informed Kaya that this worker is just completing initial assessment and understands that per other notes, Kaya doesn't wish for pt to return home. Kaya states pt had a raised toilet seat, walker, cane, grabbars at home. PCP is Dr. Robledo and pharmacy is [facility]. Kaya states she assisted pt with all ADLs. Kaya states pt has had HHC (PT/OT/ST) in the past and states the agency was [facility]. Kaya states pt has never been to SNF, but does state pt was [facility]. Kaya states no other psych hospitalization. AYAAN asked Kaya about choices for SNF for pt. Kaya states [facility] in memory care unit has beds. AYAAN informed Kaya that [facility] is assisted living and this worker cannot arrange assisted livings as assisted livings are private pay, and furniture has to be arranged, things that cannot be done while pt is at [facility]. AYAAN informed Kaya that this worker can get pt to SNF though. Kaya states she has looked at many SNF in [place] including [facility] [place], [facility], [facility]. Imani states she doesn't want pt to go to [facility] but if he has to then he can go. AYAAN asked for preference on a couple facilities to try first and Kaya requests [facility] or [facility]. AYAAN informed Kaya that this worker will send referrals to both places and then let Kaya know. Kaya states understanding. AYAAN placed a call to Heidi at [facility], provided referral. AYAAN faxed referral. AYAAN placed a call to [facility] and left message for Bonita asking if they are taking new admissions at this time. Plan: SNF pending acceptance Original Note: Social Work Note AYAAN reviewed chart. Pt's is having difficulty taking care of pt, requests SNF. Pt has Lewy Body Dementia and Parkinsons, pt confused. AYAAN attempted to call pt's Kaya to discuss discharge planning, no answer, SW left message for Kaya to give this worker a call back. SW waiting for call back. Plan: Likely SNF Fawn Shine [employer]OCIATE TRAINER, [employer]ER & CEO
[2020-03-26 12:06] LABS: Pathologist Review Reviewed
[2020-03-26 12:12] LABS: Pathologist Review Reviewed
--- NOTE | 2020-03-26 12:49 | TELEMED_ITS ---
SOC Telemed has confirmed receipt of a request for visit. This document confirms receipt of the order initiating the consult. To find the results of the consultation, please view the patient's reports for the scanned Telemed Consult.
[2020-03-26] MEDS: Potassium Chloride 10mEq/100mL 10 MEQ/100 ML IV.SOLN. 100 MEQ IV BOLUS ×4 (13:15→18:26)
[2020-03-26] MEDS: 0.9% Saline Lock 10 ML Syringe IV (14:42)
[2020-03-26] MEDS: LORazepam 2 MG/ML Syringe 1 MG IV (14:42)
--- NOTE | 2020-03-26 14:50 | NURSING ---
Off unit to MRI with FIDE James.
--- NOTE | 2020-03-26 15:58 | CASEMGMT ---
Social Work Note AYAAN received call from Heidi at [facility] stating due to pt's behaviors both [facility] and [facility] are not able to accept pt. Heidi states staff feel pt needs memory care unit. AYAAN placed a call to back to Kaya. AYAAN updated Kaya that this worker had called [facility] and left message, waiting for call back. AYAAN informed Imani that both [facility] and [facility] are not able to accept pt. [facility] is not taking admissions at this time. AYAAN asked Kaya if this worker could send referral to [facility] and Kaya gave this worker permission to do so. AYAAN placed a call to Ivanna at [facility] and left message. AYAAN faxed referral. Plan: SNF pending acceptance Fawn Shine [employer] INVESTIGATOR SPECIAL AGENT, M[employer] LOCKER ROOM ATTENDANT
--- NOTE | 2020-03-26 18:57 | NURSING ---
SOC tele med computer in room. This RN at bedside.
[2020-03-26] MEDS: Metoprolol Tartrate 25 MG Tablet PO (22:51)
[2020-03-26] MEDS: Escitalopram Oxalate 10 MG Tablet PO (22:51)
[2020-03-26] MEDS: QUEtiapine 100 MG Tablet PO (22:51)
[2020-03-26] MEDS: CARBIDOPA/LEVODOPA CR 50/200 Tablet PO (22:51)
[2020-03-27 05:09] VITALS: BP 152/86; PULSE 82; RESP 18; TEMP 36.9; O2SAT 94
[2020-03-27] MEDS: Heparin Injection (Vial) 5,000 UNIT/ML VIAL 5000 UNIT SC (05:40)
[2020-03-27] MEDS: Carbidopa/Levodopa 25/100 Tablet PO ×2 (05:41→11:00)
[2020-03-27] MEDS: Tolterodine Tartrate 2 MG CAP.SA PO (05:41)
[2020-03-27] MEDS: Carbidopa/Levodopa 10/100 Tablet PO ×2 (05:41→11:00)
[2020-03-27] MEDS: Loratadine 10 MG Tablet PO (05:41)
[2020-03-27 07:45] LABS: Anion Gap 7 (5-15); BUN 9 mg/dL (7-18); Chloride 110 mmol/L (98-107); Creatinine, Serum 0.56 mg/dL (0.70-1.30); EST Glomerular Filtration Rate 153 mL/min (>60); Est Glom Filt Rate - Afr Amer 186 mL/min (>60); Estimated Creatinine Clearance 65.18 ml/min; Glucose 86 mg/dL (74-106); Potassium 3.3 mmol/L (3.5-5.1); Sodium Level 140 mmol/L (136-145)
[2020-03-27] MEDS: Ceftriaxone 1 GM/50 ML BAG IV (07:53)
--- NOTE | 2020-03-27 08:52 | PCM.TXEXTCAR ---
- Diet 03/25/20 18:27 Diet: Regular - General Food consistency:: Regular Liquid Consistency:: Regular/Thin - Routine Orders/Code Status Routine Lab Work: - mondays - Therapies Weight Bearing: Full weight bearing Physical Therapy: Eval and Treat Occupational Therapy: Eval and Treat Speech Therapy: Eval and Treat - Allergies/Procedures Done in Hospital Allergies/Adverse Reactions: Allergies gentamicin [Gentamicin] Allergy (Verified 12/30/19 09:26) Unknown hydrocodone bitartrate [From Vicodin] Allergy (Verified 12/30/19 09:26) Itching morphine Allergy (Verified 12/30/19 09:26) Itching oxycodone Allergy (Verified 12/30/19 09:26) Itching Procedures: None - Type of Care/Length of Stay Estimated LOS: Convalescent Care Less Than 30 days Type of Care Needed: Skilled Rehab Potential: Poor Prognosis: Fair - Additional Orders/Day of Discharge Additional Orders: No haloperidol. Day of Discharge: 03/27/20 - Follow Up Care Primary Care Physician: Cristobal Robledo DO [Primary Care Provider] - Within 2 Weeks Please Follow Up With: Neurology When: 1-2 months
--- NOTE | 2020-03-27 08:59 | DS.PCM_ITS ---
Discharge Date and Diagnosis - Problem List Patient Problems: Active and Suspected Problems (Last Reviewed 06/25/19 @ 10:[address] Ole Bassett MD) Delirium due to another medical condition (Acute) Pneumonia (Acute) Date of Admission: 03/25/20 Date of Discharge: 03/27/20 - Primary Discharge Diagnosis Acute Problems: Active Problems (Last Reviewed 06/25/19 @ 10:[address] Ole Bassett MD) Delirium due to another medical condition (Acute) Pneumonia (Acute) - Secondary Discharge Diagnosis Chronic Problems: Chronic Problems (Last Reviewed 06/25/19 @ 10:[address] Ole Bassett MD) Lewy body dementia with behavioral disturbance (Chronic) Parkinson's disease (Chronic) Chronic atrial fibrillation (Chronic) Diastolic dysfunction (Chronic) Nonrheumatic aortic (valve) insufficiency (Chronic) Bicuspid aortic valve (Chronic) Atrial flutter (Chronic) pulmonary vein isolation , cardioversion 1999, 2007,2008, 2014 Hospital Course and Treatment Imaging Results: Clinical Impression(s) from Imaging Studies Brain CT 03/25/20 13:18 IMPRESSION: Chronic involutional changes of the brain. Electronically Signed: Ishan Singh, at 15:29 EST , Service support , Chest X-Ray 03/25/20 15:25 IMPRESSION: Patchy left lower lobe infiltrate. Electronically Signed: Ishan Singh at 15:39 EST , Service support , Brain MRI 03/26/20 09:50 IMPRESSION: Involutional changes of the brain, as described above. No acute infarct. Electronically Signed: Yury Oliveros MD at 16:42 EST Tel , Service support , SOC neurology Operations: None Procedures: - - EEG Summary of Care Provided: The patient is a 70 year old M with confusion. Patient has a history of a Parkinson's disease and Lewy body dementia. Patient just presents with progressive confusion and inability to care for himself. Patient was forgetting simple things such as his spouse's name, how to turn on lights and where the bathroom was. Patient presented to the emergency room and was found to have a left lower lobe infiltrate. Patient was started on ceftriaxone and azithromycin. My evaluation of the patient yesterday patient is confused and he is just globally weak. On examination of his oropharynx revealed that he had appeared to be bitten his tongue. Was concerned though low that there could be possibly underlying seizure which certainly patient would be a risk given the changes that his membranes experience. MRI showed some involutional changes and EEG she was negative for any epileptiform activity. Neurologist felt this is more of a progression of his underlying Lewy body dementia that may have been worsened by the underlying pneumonia. Patient overall has been doing well though did have some confusion overnight but did not require any chemical or physical restraints. Plan is for the patient to go to a senior care facility. Long-term, the patient will unlikely be able to return home as his is expressed that she would not be able to care for him any further. The patient will be put on Augmentin for the pneumonia 7 day course of antibiotics. [] Patient Problems: Active and Suspected Problems (Last Reviewed 06/25/19 @ 10:[address] Ole Bassett MD) Delirium due to another medical condition (Acute) Pneumonia (Acute) - Physical Exam Vitals/I&O's: Vital Signs Temp Pulse Resp BP Pulse Ox 36.9 C 82 18 152/86 H 94 03/27/20 05:09 03/27/20 05:09 03/27/20 05:09 03/27/20 05:09 03/27/20 05:09 Oxygen Delivery Method Room Air Weight: 76.5 kg Body Mass Index (BMI) 26.4 Intake and Output for Last 24 Hours 03/25/20 03/26/20 03/27/20 23:59 23:59 23:59 Intake Total 1305.0 / 1305.0 4300.0 / 4500.0 1092 / 1092 Output Total 1150 / 1550 400 / 400 Balance 1305.0 / 955.0 3150.0 / 2950.0 692 / 692 General: Confused HEENT: Atraumatic, Normocephalic Neck: No Nodes, Thyroid Normal Size and Texture Lungs: Clear to auscultation, Normal air movement, No rhonchi, No wheeze Cardiovascular: Regular rate, Regular Rhythm, Normal S1, Normal S2 Abdomen: Bowel Sounds Present, Soft, Non Tender, Non-Distended Microbiology Past 72 Hours 03/25/20 14:15 Mucosa - Nose SARS-CoV-2 Antigen (Rapid) - Final Laboratory Results 03/25/20 13:33: Diff Path Review Reviewed 03/26/20 05:37: Diff Path Review Reviewed 03/26/20 10:35: Ammonia 37.0 H 03/27/20 06:56: Sodium 140, Potassium 3.3 L, Chloride 110 H, Carbon Dioxide 23.0, Anion Gap 7, BUN 9, Creatinine 0.56 L, Estim Creat Clear Calc 65.18, Est GFR (MDRD) Af Amer 186, Est GFR (MDRD) Non-Af 153, BUN/Creatinine Ratio 16.0, Glucose 86, Calcium 8.0 L Current Medications Acetaminophen (Acetaminophen 325 Mg Tablet) 650 mg PO Q6H PRN PRN PRN Reason: Pain Score 1-10/Temp > 100.7 F Albuterol Sulfate (Albuterol 2.5 Mg/3 Ml Vial.Neb.) 2.5 mg INHALATION Q4H PRN PRN PRN Reason: SOB &/OR WHEEZING Carbidopa/Levodopa (Carbidopa/Levodopa 10/100 Tablet) 1 tablet PO 0630,1030,1430,1830 [facility] Last Admin: 03/27/20 05:41 Dose: 1 tablet Documented by: Carbidopa/Levodopa (Carbidopa/Levodopa 25/100 Tablet) 1 tablet PO 0630,1030,1430,1830 [facility] Last Admin: 03/27/20 05:41 Dose: 1 tablet Documented by: Carbidopa/Levodopa (Carbidopa/Levodopa Cr 50/200 Tablet) 1 tablet PO QHS@2230 [facility] Last Admin: 03/26/20 22:51 Dose: 1 tablet Documented by: Ergocalciferol (Ergocalciferol 50,000 Unit Capsule) 50,000 unit PO TU@1030 [facility] Escitalopram Oxalate (Escitalopram Oxalate 10 Mg Tablet) 10 mg PO QHS [facility] Last Admin: 03/26/20 22:51 Dose: 10 mg Documented by: Heparin Sodium (Porcine) (Heparin Injection (Vial) 5,000 Unit/Ml Vial) 5,000 unit SC Q8 [facility] Last Admin: 03/27/20 05:40 Dose: 5,000 unit Documented by: Sodium Chloride () 250 mls @ 15 mls/hr IV .[id number] PRN PRN Reason: Saline Flush Sodium Chloride () 250 mls @ 15 mls/hr IV .[id number] PRN PRN Reason: Additional IVPB Infusion Ceftriaxone Sodium (Rocephin) 1 gm in 50 mls @ 100 mls/hr IV Q24 [facility] Last Admin: 03/27/20 07:53 Dose: 100 mls/hr Documented by: Azithromycin 500 mg/ Dextrose 255 mls @ 250 mls/hr IV Q24 [facility] Last Infusion: 03/26/20 12:50 Dose: Infused Documented by: Loratadine (Loratadine 10 Mg Tablet) 10 mg PO DAILY@0630 [facility] Last Admin: 03/27/20 05:41 Dose: 10 mg Documented by: Lorazepam (Lorazepam 2 Mg/Ml Syringe) 1 mg IV Q4H PRN PRN PRN Reason: seizure activity Methotrexate (Methotrexate 2.5 Mg Tablet) 15 mg PO SA@1030 [facility] Metoprolol Tartrate (Metoprolol Tartrate 25 Mg Tablet) 25 mg PO BID [facility] Last Admin: 03/26/20 22:51 Dose: 25 mg Documented by: Pantoprazole Sodium (Pantoprazole Sodium 40 Mg Tablet) 40 mg PO DAILY [facility] Last Admin: 03/26/20 10:17 Dose: 40 mg Documented by: Potassium Chloride (Potassium Chloride 20 Meq Tablet) 40 meq PO X1 ONE Stop: 03/27/20 09:00 Quetiapine Fumarate (Quetiapine 100 Mg Tablet) 100 mg PO QHS@2230 [facility] Last Admin: 03/26/20 22:51 Dose: 100 mg Documented by: Rivastigmine (Rivastigmine 9.5mg Patch) 1 patch TD DAILY [facility] Last Admin: 03/26/20 10:25 Dose: 1 patch Documented by: Rivastigmine (Rivastigmine 4.6 Mg Patch) 1 patch TD DAILY [facility] Last Admin: 03/26/20 10:24 Dose: 1 patch Documented by: Sodium Chloride (0.9% Saline Lock 10 Ml Syringe) 10 - 40 ml IV UD PRN PRN Reason: SALINE FLUSH Last Admin: 03/26/20 14:42 Dose: 10 ml Documented by: Tolterodine Tartrate (Tolterodine Tartrate 2 Mg Cap.Sa) 2 mg PO DAILY@629 [facility] Last Admin: 03/27/20 05:41 Dose: 2 mg Documented by: Discharge Diet: No Restrictions Home Medications: Medications to take at Discharge carbidopa 25 mg-levodopa 100 mg tablet 1 tab PO 4X/DAY tab 08/29/17 escitalopram oxalate 10 mg tablet 10 mg PO QHS 08/29/17 carbidopa 10 mg-levodopa 100 mg tablet 1 tab PO 4X/DAY 30 Days #120 08/31/17 methotrexate sodium 2.5 mg tablet 15 mg PO SA@1030 05/29/18 Albuterol Sulfate [Proventil Hfa] 2 puff IH Q4H PRN PRN 08/02/18 oxybutynin chloride 10 mg tablet,extended release 24 hr 10 mg PO DAILY@62906/25/19 rivastigmine 13.3 mg TRANSDERMAL DAILY 06/25/19 loratadine 10 mg tablet 10 mg PO DAILY@62912/30/19 metoprolol tartrate 25 mg tablet 25 mg PO BID tab 12/30/19 Carbidopa/Levodopa 50/200 [Sinemet CR 50/200] 50 mg PO QHS@222903/25/20 Cholecalciferol (Vitamin D3) [Vitamin D3] 50,000 units PO TU@1030 03/25/20 Pantoprazole Sodium [Protonix] 40 mg PO DAILY 03/25/20 Quetiapine Fumarate [Seroquel] 100 mg PO QHS@2230 03/25/20 Amox/Clavulanate Tablet [Augmentin Tablet] 875 mg PO Q12H #10 tab 03/27/20 Following Prescriptions Were Given to Patient: Amox/Clavulanate Tablet [Augmentin Tablet] 875 mg PO Q12H #10 tab Primary Care Physician: Cristobal Robledo DO [Primary Care Provider] - Within 2 Weeks Please Follow Up With: Neurology When: 1-2 months Medical Necessity - Tobacco Use Smoking Status: Never smoker Tobacco Use: Non-smoker Meaningful Use Info Meaningful Use Diagnoses (Choose all that apply): None applicable Inpatient E&M: [id number] [facility]
--- NOTE | 2020-03-27 09:33 | CASEMGMT ---
Addendum entered by Fawn Shine 03/27/20 10:33: AYAAN faxed completed discharge paperwork to [facility] including transfer to extended care facility, signed medication list, any scripts, convalescent 7000, COVID screening tool. Original in SNF Folder and copy on pt's charts. AYAAN completed convalescent 7000 in [facility]. Original in SNF folder and copy on pt's chart. AYAAN accessed trip assist and arranged transportation via cot for 1:00pm. Transportation form completed and placed on SNF folder and copy on pt's chart. AYAAN updated RN on transportation time. AYAAN placed a call to Ivanna at [facility] and updated her on transportation time. AYAAN placed a call to pt's Kaya and updated her on transportation time. Kaya states understanding. Plan: [facility] today skilled with [facility] transporting pt via cot at 1:00pm Fawn GORDILLO, MONICA Original Note: Social Work Note AYAAN updated that Ivanna had call in, stating [facility] is able to accept pt. [facility] will isolate pt for 14 days and then could move pt to Memory Care Unit. AYAAN placed a call to Ivanna. Ivanna confirms [facility] is able to accept pt pt. AYAAN updated Ivanna that this worker is not sure if pt will stay at [facility] Memory Care or will transfer to [facility] as pt's had mentioned that. Ivanna states understanding. Ivanna state [facility] has to move some beds around, requests transportation to be arranged for anytime after 12:30pm. AYAAN placed a call to pt's Kaya. AYAAN updated Kaya that [facility] hasn't returned this worker's call yet but [facility] is able to accept pt today. Kaya states understanding, agreeable to [facility]. AYAAN asked Kaya if once transportation has been arranged if she would like this worker to call her for an update again or call her daughter. Kaya states to call her with transportation time. AYAAN updated physician. Plan: [facility] skilled today Fawn GORDILLO, SUPPLIES PACKER
[2020-03-27] MEDS: Rivastigmine 9.5mg Patch 1 PATCH TD (11:00)
[2020-03-27] MEDS: Pantoprazole Sodium 40 MG Tablet PO (11:00)
[2020-03-27 11:08] VITALS: BP 156/95; PULSE 78; RESP 18; TEMP 36.9; O2SAT 97
[2020-03-27] MEDS: Metoprolol Tartrate 25 MG Tablet PO (11:08)
--- NOTE | 2020-03-27 12:50 | NURSING ---
Report called to [facility] at this time.
== END 2020-03-27 13:10 | disposition skilled nursing facility (03) | DRG 56 ==
LOC: ED 15:33 → MS3 16:11
PROVIDERS: Admitting Provider Internal Medicine; Emergency Provider Emergency Medicine; PCP Family Medicine
DX: G31.83 Neurocognitive disorder with Lewy bodies (principal); J18.9 Pneumonia, unspecified organism; F02.81 Dementia in other diseases classified elsewhere, unspecified severity, with behavioral disturbance; I50.32 Chronic diastolic (congestive) heart failure; I48.20 Chronic atrial fibrillation, unspecified; G20 Parkinson's disease; I11.0 Hypertensive heart disease with heart failure; Z79.899 Other long term (current) drug therapy; R53.81 Other malaise; Z66 Do not resuscitate
CPT/HCPCS: 36415; 70450; 70551; 71045; 80048; 80053; 81001; 82140; 83605; 84484; 85025; 87040; 87426; 92610; 93005; 95819; 97162; 97166; 99285; J7030; P9612; A4216

== ENCOUNTER 2020-04-04 18:50 | Emergency (ER) | payer MEDICARE, OTHER, SELFPAY ==
[2020-03-25 18:11] VITALS: BMI 26.4
[2020-04-04 18:52] VITALS: BP 108/71; PULSE 79; RESP 18; TEMP 36.9; O2SAT 95; BMI 27.8
--- NOTE | 2020-04-04 19:00 | EKG12_ITS ---
Test Reason : SOB Blood Pressure : / mmHG Vent. Rate : 063 BPM Atrial Rate : 060 BPM P-R Int : 000 ms QRS Dur : 092 ms QT Int : 408 ms P-R-T Axes : 000 -04 009 degrees QTc Int : 417 ms Atrial fibrillation Abnormal ECG Confirmed by JESUS FORMAN, JON ([id number]), visual effects editor DIANN FLORES ([id number]) on 04/08/2020 11:03:29 AM Referred By: KEITH Confirmed By:JON LEE MD
--- NOTE | 2020-04-04 19:04 | ED.DCSUM_ITS ---
History of Present Illness Chief Complaint: Mental Health Detail of Chief Complaint: Violent behavior, paranoid ideation and visual hallucination Informant: Patient, PCP Onset: - - Presumed this evening Context: Sudden Onset Quality: Patient had violent outburst injuring staff and damaging computers Location: Nursing facility Current Severity: Mild Maximum Severity: Severe Worsened by: Paranoid ideation and visual hallucination Relieved by: Unknown Associated Symptoms: Unknown Narrative: Sent in for violent outbursts due to paranoid ideation and visual hallucination. Patient does have history of Lewy body dementia with behavioral distur bance/issues. He does not have history of schizoaffective disorder or schizophrenia. When asked why he is here he introduced himself as Dr. Waggoner. He stated I was being an ass hole . Patient presently is cooperative pleasant and follows commands. When asked to elaborate what happened he put his hands together in the form of [place] and said there is this pressure that caused this to happen. Patient is not a good informant. He denies cardiac, respiratory, upper respiratory infectious symptoms or urologic symptoms. Review of records indicate that he has had problems with behavior in the past. Prior similar symptoms: Yes Recent Illness/Hospitalization: Yes - Past Medical History (1) Toxic metabolic encephalopathy Status: Acute (2) Atrial flutter Status: Chronic Comment: pulmonary vein isolation , cardioversion 1999, 2007,2008, 2014 (3) Bicuspid aortic valve Status: Chronic (4) Diastolic dysfunction Status: Chronic (5) Lewy body dementia with behavioral disturbance Status: Chronic (6) Nonrheumatic aortic (valve) insufficiency Status: Chronic (7) Parkinson's disease Status: Chronic Past Medical History - Allergies and Home Meds Allergies/Adverse Reactions: Allergies gentamicin [Gentamicin] Allergy (Verified 04/04/20 19:02) Unknown hydrocodone bitartrate [From Vicodin] Allergy (Verified 04/04/20 19:02) Itching morphine Allergy (Verified 04/04/20 19:02) Itching oxycodone Allergy (Verified 04/04/20 19:02) Itching haloperidol [From Haldol] Adverse Reaction (Verified 04/04/20 19:48) NEEDS FOLLOW-UP Primary Care Physician: Cristobal Robledo DO [Primary Care Provider] - Prior records reviewed: Yes Surgical History: appendectomy, cholecystectomy, rotator cuff repair, - - Hernia repair, Foot surgery, Ablation. Lives: [facility] Smoking Status: Unknown if ever smoked Alcohol: None - Unknown Drugs: None - Unknown - Family History Maternal Family History: Reports: Unknown Paternal Family History: Reports: - - Patient does not know as he is adopted Review of Systems ROS: Unable to Obtain - Altered mental status due to dementia/Alzheimer's Physical Exam Vital Signs/Narrative: Vital Signs Temp Pulse Resp BP Pulse Ox 04/04/20 18:52 98.5 F 79 18 108/71 95 Inital Vital Signs reviewed: Yes General: Well nourished, Well developed, Unkempt Head: Normocephalic, Atraumatic Eyes: Perrl, EOMI. Negative for: Pale conjunctiva, Scleral icterus ENT: Moist mucous membranes, No rhinorrhea, TM's clear Neck: Supple, Nontender, No lymphadenopathy, No JVD Cardiovascular: Regular rate, No murmurs, Normal S1, Normal S2, Irregular Respiratory: No distress, CTA bilaterally, Chest nontender Abdomen: Soft, Nontender, Nondistended, Normal bowel sounds Rectal: Deferred Back: Nontender, Normal Inspection Extremities: Nontender, Edema Skin: Normal color, No rash Neurological: Alert, Cranial nerves II-XII grossly intact, Normal Strength, Normal Sensation, Normal DTR. Negative for: Oriented x3, Normal Gait - Date was not assessed Psychological: - - Presently the patient is pleasant. Difficult to assess due to dementia. Reported paranoid ideation and visual hallucinations. Diagnostic/Tx/Re-eval Impressions Brain CT 04/04/20 19:10 04/04/20 19:10 CT Head [Brain/Head without Contrast] [CT] Stat 04/04/20 19:30 Mucosa - Nose SARS-CoV-2 Antigen (Rapid) - Final Laboratory Results 04/04/20 04/04/20 04/04/20 19:15 19:15 19:15 WBC 7.6 RBC 3.62 L Hgb 12.1 L Hct 36.5 L MCV 100.8 H MCH 33.4 H MCHC 33.2 RDW Std Deviation 47.5 H RDW Coeff of Declan 12.9 Plt Count 427 MPV 10.4 Immature Gran % (Auto) 1.400 H Neut % (Auto) 76.0 H Lymph % (Auto) 10.5 L [place] % (Auto) 9.3 Eos % (Auto) 2.0 Baso % (Auto) 0.8 Absolute Neuts (auto) 5.8 Absolute Lymphs (auto) 0.80 L Nucleated RBC % 0 Sodium 140 Potassium 4.0 Chloride 108 H Carbon Dioxide 28.0 Anion Gap 4 L BUN 16 Creatinine 0.74 Estim Creat Clear Calc 65.18 Est GFR (MDRD) Af Amer 135 Est GFR (MDRD) Non-Af 112 BUN/Creatinine Ratio 21.7 H Glucose 94 Calcium 8.5 Total Bilirubin 0.50 AST 26 ALT 9 L Alkaline Phosphatase 75 Total Protein 6.4 Albumin 3.2 Globulin 3.2 Albumin/Globulin Ratio 1.0 Urine Color Urine Clarity Urine pH Ur Specific [place] Urine Protein Urine Glucose (UA) Urine Ketones Urine Occult Blood Urine Nitrite Urine Bilirubin Urine Urobilinogen Ur Leukocyte Esterase Urine RBC Urine WBC Ur Squamous Epith Cells Urine Bacteria Urine Mucus Urine Opiates Screen Urine Methadone Screen Ur Barbiturates Screen Ur Phencyclidine Scrn Ur Amphetamines Screen U Methamphetamin-MDMA U Benzodiazepines Scrn Urine Cocaine Screen U Cannabinoids Screen Ur Drug Screen Comment Ethyl Alcohol < 3.0 04/04/20 04/04/20 19:30 19:30 WBC RBC Hgb Hct MCV MCH MCHC RDW Std Deviation RDW Coeff of Declan Plt Count MPV Immature Gran % (Auto) Neut % (Auto) Lymph % (Auto) [place] % (Auto) Eos % (Auto) Baso % (Auto) Absolute Neuts (auto) Absolute Lymphs (auto) Nucleated RBC % Sodium Potassium Chloride Carbon Dioxide Anion Gap BUN Creatinine Estim Creat Clear Calc Est GFR (MDRD) Af Amer Est GFR (MDRD) Non-Af BUN/Creatinine Ratio Glucose Calcium Total Bilirubin AST ALT Alkaline Phosphatase Total Protein Albumin Globulin Albumin/Globulin Ratio Urine Color Yellow Urine Clarity Sl Cldy Urine pH 6.5 Ur Specific [place] 1.015 Urine Protein Negative Urine Glucose (UA) Normal Urine Ketones 5 H Urine Occult Blood Negative Urine Nitrite Negative Urine Bilirubin Negative Urine Urobilinogen Normal Ur Leukocyte Esterase 25 H Urine RBC 0-5 SEEN Urine WBC 10-25 SEEN Ur Squamous Epith Cells 0-5 SEEN Urine Bacteria 0 SEEN Urine Mucus 3+ Urine Opiates Screen NEGATIVE Urine Methadone Screen NEGATIVE Ur Barbiturates Screen NEGATIVE Ur Phencyclidine Scrn NEGATIVE Ur Amphetamines Screen NEGATIVE U Methamphetamin-MDMA NEGATIVE U Benzodiazepines Scrn NEGATIVE Urine Cocaine Screen NEGATIVE U Cannabinoids Screen NEGATIVE Ur Drug Screen Comment Ethyl Alcohol UA reveals pyuria without bacteria. Nitrites were negative. This is not indicative of a urinary tract infection. Talk screen is negative. Comprehensive metabolic panel is unremarkable. White count is normal with normal differential. He does have evidence of mild macrocytic anemia. It is my opinion that patient's paranoia and hallucinations are due to his Lewy body dementia. Kelley has seen patient. Has spoke into the nurse who spoke to the chapter relations administrator on-call. They feel uncomfortable having him return to the nursing facility because of his outburst. states [facility] because of his dementia. She informed us that he did not do well last time he was transferred to a psychiatric facility. She is the POA. She asked if she may take him home. Since he is appropriate here with the understanding that he may have an outburst. She stated if this occurs she will do what is appropriate at that time - EKG Initial EKG Interpretation: Atrial Fibrillation - Atrial fibrillation with a ventricular rate of 63. Cures duration 92 ms. QT duration is 408 ms. [place] is normal. The only abnormality is atrial fibrillation, which is chronic. ED Disposition - Plan for ED Patient: Disposition: Home or Assisted Living Diagnosis: Lewy body dementia with behavioral disturbance, Paranoid ideation, Visual hallucinations Instructions: ED CAREGIVER SUPPORT for DEMENTIA Referrals: Cristobal Robledo DO [Primary Care Provider] - As Needed
--- NOTE | 2020-04-04 19:10 | CT_ITS ---
STUDY: CT BRAIN WITHOUT CONTRAST REASON FOR EXAM: Male, 70 years old. MENTAL STATUS CHANGE WITH HALLUCINATIONS,COMBATIVE -- HX:A-FIB,COPD,HTN,PARKINSON''S.LEWY BODY DEMENTIA RADIATION DOSAGE (If Supplied By Facility): CTDIvol = ( 29.71 ) mGy, DLP = ( 582.37 ) mGycm TECHNIQUE: Transaxial CT imaging of the brain was performed without administration of intravenous contrast material. Individualized dose optimization techniques were used for this CT. 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 Normal soft tissue structures. Normal calvarium. Normal size ventricles and extra-axial spaces for the patient''s age. Normal white matter tracts of the cerebral hemispheres. Normal basal ganglia and thalami. Normal brainstem. Normal cerebellum. There is no intracranial hemorrhage. There are no findings of an acute ischemic infarction. Normal visualized paranasal sinuses. 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 Recommend follow-up CTA brain. Electronically Signed: Isaias Odom MD at 20:17 EST , Service support , CT/Brain/Head without Contrast
[2020-04-04 19:20] LABS: Absolute Neutrophil Count 5.8 X10^3/uL (2.0-7.7); Basophil# 0.06 X10^3/uL; Basophil% 0.8 % (0-1); Eosinophil# 0.15 X10^3/uL; Hematocrit 36.5 % (40-54); Hemoglobin 12.1 g/dL (13.0-16.5); Lymphocyte % 10.5 % (19-41); Mean Corp Hgb Conc 33.2 g/dL (32-36); Mean Corpuscular Hgb 33.4 pg (27.0-32.0); Mean Corpuscular Volume 100.8 fL (80-94); Mean Platelet Vol. 10.4 fl (6.2-12.0); Monocyte# 0.71 X10^3/uL; Monocyte% 9.3 % (0-10); NRBC Flagged by Analyzer 0 % (0-5); Platelet Count 427 K/mm3 (150-450); RBC Distribution Width CV 12.9 % (11.6-14.6); RBC Distribution Width SD 47.5 fl (35.1-43.9); Red Blood Count 3.62 M/mm3 (4.6-6.2); White Blood Count 7.6 K/mm3 (4.4-11.0)
[2020-04-04 19:39] LABS: Bacteria 0 SEEN /hpf (None Seen)
[2020-04-04 19:40] LABS: AST(SGOT) 26 U/L (15-37); Alanine Aminotransfer ALT/SGPT 9 U/L (16-61); Albumin, Serum 3.2 g/dL (3.2-5.0); Alkaline Phosphatase 75 U/L (45-117); Anion Gap 4 (5-15); BUN 16 mg/dL (7-18); BUN/Creat Ratio 21.7 RATIO (10-20); Calcium,Total 8.5 mg/dL (8.5-10.1); Chloride 108 mmol/L (98-107); Creatinine, Serum 0.74 mg/dL (0.70-1.30); EST Glomerular Filtration Rate 112 mL/min (>60); Est Glom Filt Rate - Afr Amer 135 mL/min (>60); Estimated Creatinine Clearance 65.18 ml/min; Globulin 3.2 g/dL (2.2-4.2); Glucose 94 mg/dL (74-106); Protein, Total 6.4 g/dL (6.4-8.2); Sodium Level 140 mmol/L (136-145)
--- NOTE | 2020-04-04 19:44 | ED.RN ---
Pt's phone and states that pt reacts to Haldol and not to give it; that the last time he had an episode like this he had been given a similar med and that he was not to go to a Psych facility under any ciircumstance. Kelley (AYAAN) informed.
[2020-04-04 19:46] LABS: Alcohol, Blood (Medical)-Serum < 3.0 mg/dL
[2020-04-04 19:47] LABS: Color, Urine Yellow (Yellow); Glucose, Dipstick Normal (Normal); Ketone-Dipstick 5 mg/dl (Negative); Leukocyte Esterase-Dipstick 25 /ul (Negative); Nitrite-Dipstick Negative (Negative); Occult Blood-Urine Negative /ul (Negative); Protein-Dipstick Negative (Negative); Specific Gravity, Urine 1.015 (1.002-1.030); Urine Bilirubin Dipstick Negative (Negative); Urine Clarity Sl Cldy (Clear); Urine Urobilinogen Normal (Normal); Urine pH 6.5 (5.0 - 8.0)
--- NOTE | 2020-04-04 19:55 | CM.ED ---
SOCIAL WORK Informant: Dr. Edward and NurseBonita Reason for Consult: Discharge Planning/Possible [facility] placement Updated by staff patient presents from [facility] due to behavioral changes. Facility recommending [facility]. Per nurseBonita, patient's /HPOAKaya called in and does not want patient to discharge to [facility] under any circumstances. Per Bonita martinez, patient calm and cooperative with staff at this time. Call to [facility] to discuss patient's case. Spoke with patient's nurseAlba. Updated Alba on patient's status while in ER. Per Alba, it was reported this morning that patient was running around naked and peeing patient was also throwing computers and hole punches. Informed on 's request that patient not go to [facility] and at this time Dr. Edward not comfortable with writing [place]. Nurse spoke with earlier and was informed patient would need psych hospitalization. Alba reports will speak to administration and call this worker back. Call to patient's , Kaya. Per Kaya, was not fully informed on patient's behaviors or psych hospitalization by nurse at [facility]. reports patient did not have a good experience after last psych hospitalization and does not wish for patient to discharge from ER to psych hospital. Informed this worker awaiting call back from Alba at [facility]. Nursing and Dr. Edward updated on the above.
[2020-04-04 19:56] LABS: Squamous Epithelial Cells - UA 0-5 SEEN /hpf (0-5)
[2020-04-04 19:57] LABS: Red Blood Cells-Urine 0-5 SEEN /hpf (0-5); White Blood Cells 10-25 SEEN /hpf (0-5)
[2020-04-04 19:58] LABS: Mucous, Urine 3+ /hpf (<or=2+)
[2020-04-04 20:00] LABS: Amphetamine Urine VISTA NEGATIVE (<1000 ng/mL); Barbiturate Urine VISTA NEGATIVE (< 200 ng/mL); Benzodiazepine Urine VISTA NEGATIVE (< 200 ng/mL); Cocaine Urine VISTA NEGATIVE (< 300 ng/mL); Ecstacy Urine VISTA NEGATIVE (< 500 ng/mL); Methadone Urine VISTA NEGATIVE (< 300 ng/mL); PCP Urine VISTA NEGATIVE (< 25 ng/mL); THC Urine VISTA NEGATIVE (< 50 ng/mL); Vista UDS pH Range 6
--- NOTE | 2020-04-04 20:15 | CM.ED ---
SOCIAL WORK Received call from Alba with [facility]. Per Alba, spoke with D.O.N. and administration and they are strongly encouraging psych hospitalization, but cannot deny patient from returning. Informed Alba this worker will update patient's . Call to patient's and updated on the above. inquiring about psych hospitals and reviewed options with . in agreement with referral to [facility] or [facility]. Staff updated. José Miguel Vaz, TRAY SETTER, PULLEY MAINTAINER
--- NOTE | 2020-04-04 20:28 | CM.ED ---
SOCIAL WORK Received call back from . inquiring if able to take patient home as she does not wish for patient to be placed in psych facility. reports patient has only been at [facility] since last Monday due to dementia. Discussed with Dr. Edward. Dr. Edward reports patient is medically cleared and if wanting patient to discharge home then patient can discharge home with . reports will be in shortly to transport patient home. Updated nursing staff. José Miguel Vaz, FISHING CAPTAIN, COCOA BEAN ROASTER HELPER
--- NOTE | 2020-04-04 20:39 | ED.RN ---
Pt requiring frequent re-direction; trying to get out of bed. Lights dimmed and blanket provided.
[2020-04-04 21:04] VITALS: BP 117/82; PULSE 69; RESP 14
--- NOTE | 2020-04-04 21:43 | CM.ED ---
SOCIAL WORK Call to [facility], spoke with patient's nurse, Alba and updated patient discharged home with . José Miguel Vaz, VENUE ATTENDANT, LUMBER INSPECTOR
== END 2020-04-04 21:06 | disposition home or self-care (01) ==
PROVIDERS: Emergency Provider Emergency Medicine; PCP Family Medicine
DX: G31.83 Neurocognitive disorder with Lewy bodies (principal); F02.81 Dementia in other diseases classified elsewhere, unspecified severity, with behavioral disturbance; F60.0 Paranoid personality disorder; Z79.899 Other long term (current) drug therapy
CPT/HCPCS: 70450; 80053; 80307; 80320; 81001; 85025; 87426; 93005; 99285; A4216; G0480

== ENCOUNTER 2020-06-18 12:51 | Outpatient (RCR) | payer MEDICARE, OTHER, SELFPAY ==
[2020-06-18] MEDS: COVID-19 VACC, MRNA(PFIZER)/PF 30 MCG/0.3 ML SYRINGE IM (18:36)
[2020-07-09] MEDS: COVID-19 VACC, MRNA(PFIZER)/PF 30 MCG/0.3 ML SYRINGE IM (18:03)
== END 2020-06-18 23:59 ==
LOC: IMMUN 12:51
PROVIDERS: PCP Family Medicine; Visit Provider Family Medicine
DX: Z23 Encounter for immunization (principal)
CPT/HCPCS: 0001A; 0002A; 91300

== ENCOUNTER 2021-06-27 01:13 | Emergency (ER) | payer MEDICARE, OTHER, SELFPAY ==
[2021-06-27 01:16] VITALS: BP 162/115; PULSE 73; RESP 18; TEMP 36.4; O2SAT 98; BMI 26.0
--- NOTE | 2021-06-27 01:35 | CT_ITS ---
EXAM: CT CERVICAL SPINE WITHOUT INTRAVENOUS CONTRAST CLINICAL INDICATION: head injury head injury TECHNIQUE: Helically acquired images were obtained of the cervical spine without intravenous contrast. 2D reformatted images were reviewed. This CT exam was performed using one or more of the following dose reduction techniques: automated exposure control, adjustment of the mA and/or kV according to patient size, and/or use of iterative reconstruction technique. This report was created using [employer] report generation technology. COMPARISON: X-ray cervical spine 10/17/2018 FINDINGS: VERTEBRAE: There is multilevel spondylosis. There is degenerative arthrosis of the anterior atlantoaxial articulation. DISCS/SPINAL CANAL/NEURAL FORAMINA: There is multilevel disc space narrowing. There are multilevel degenerative changes of the uncovertebral joints and apophyseal joints. C2-3: Ankylosis of the left apophyseal joint. No demonstrated stenosis. C3-4: 2 mm anterolisthesis, on a degenerative basis. Severe stenosis right and mild stenosis left neural foramina. C4-5: 2 mm anterolisthesis, on a degenerative basis. Severe stenosis right neural foramen. C5-6: Small broad posterior disc osteophyte complex. There is mild spinal stenosis with central canal AP diameter of 9 mm. Severe stenosis bilateral neural foramina. C6-7: Small broad posterior disc osteophyte complex. Moderate stenosis right and mild stenosis left neuroforamina. C7-T1: No demonstrated stenosis. SOFT TISSUES: Unremarkable. No prevertebral soft tissue swelling. LYMPH NODES: Unremarkable. No cervical adenopathy. LUNG APICES: Unremarkable as visualized. Clear. CT/Spine Cervical without Contras IMPRESSION: 1. Multilevel degenerative changes. 2. No demonstrated fracture. Electronically Signed: Momo Segal MD at 3:41 EDT Reading Location ID and State: [facility] / [place] , Service support ,
--- NOTE | 2021-06-27 01:35 | CT_ITS ---
EXAM: CT HEAD WITHOUT INTRAVENOUS CONTRAST CLINICAL INDICATION: head injury head injury TECHNIQUE: Multiple axial images were obtained of the head without intravenous contrast. This CT exam was performed using one or more of the following dose reduction techniques: automated exposure control, adjustment of the mA and/or kV according to patient size, and/or use of iterative reconstruction technique. This report was created using [employer] report generation technology. COMPARISON: 04/04/2020. FINDINGS: BRAIN AND EXTRA-AXIAL SPACES: Areas of decreased attenuation in the deep cerebral white matter are consistent with small vessel ischemic/degenerative changes. The cerebral sulci are mildly prominent consistent with brain atrophy. No intra- or extra-axial hemorrhage. No intracranial mass or mass effect. Basal cisterns are patent. BONES/JOINTS: Unremarkable. No discrete lytic or blastic abnormalities. VASCULATURE: Atherosclerotic disease. SINUSES: Unremarkable as visualized. Clear. MASTOID AIR CELLS: Unremarkable. Clear. ORBITS: Visualized globes, extraocular muscles, optic nerves and retrobulbar fat appear unremarkable. CT/Brain/Head without Contrast IMPRESSION: 1. Mild chronic involutional changes of the brain. 2. No demonstrated acute intracranial process. Electronically Signed: Momo Segal MD at 3:33 EDT ,
--- NOTE | 2021-06-27 01:35 | RAD_ITS ---
EXAM: XR THORACIC SPINE, 3 VIEWS CLINICAL INDICATION: pain pain TECHNIQUE: Frontal, lateral and swimmer''s views of the thoracic spine. This report was created using [employer] technology. COMPARISON: X-ray spine 11/14/2012. FINDINGS: VERTEBRAE: There are posterior fixation rods and pedicle screws at the L1-L3 levels. Hardware appears to be intact and there is bone growth was L1-2 and L2-3 disc spaces consistent with successful fusions. There is a wedge-shaped deformity of T12 but also present on the 1999 exam. There is multilevel spondylosis. There is mildly exaggerated thoracic kyphosis, which is less severe than it was on comparison study.. There is mild thoracic dextroscoliosis, also present on comparison study. No significant facet arthropathy. DISC SPACES: There is multilevel disc space narrowing. RAD/Thoracic Spine 3 Views IMPRESSION: 1. Old compression fracture of the T12 vertebral body. 2. Multilevel degenerative changes. Mild kyphoscoliosis. 3. Intact spinal fusions at the L1-L3 levels. 4. No evidence for acute pathology. Electronically Signed: Momo Segal MD at 3:09 EDT ,
--- NOTE | 2021-06-27 03:55 | RAD_ITS ---
EXAM: XR RIGHT HAND COMPLETE, 3 OR MORE VIEWS CLINICAL INDICATION: injury injury TECHNIQUE: Frontal, lateral and oblique views of the right hand. This report was created using [employer] report generation technology. COMPARISON: None. FINDINGS: BONES/JOINTS: There is degenerative arthrosis of the DIP joint of the fifth finger as well as the IP joint of the thumb. There is degenerative arthrosis of the first metacarpophalangeal joint. No acute fracture. No subluxation. Normal alignment. No sclerotic or destructive changes observed. SOFT TISSUES: There is nonspecific soft tissue swelling. No radiopaque foreign body. RAD/Hand Min 3 Views IMPRESSION: 1. Degenerative changes, as above. 2. No demonstrated fracture, dislocation, or destructive osseous lesion. Electronically Signed: Momo Segal MD at 4:30 EDT Reading Location ID and State: [facility] / [place] , Service support ,
--- NOTE | 2021-06-27 04:15 | EX.ED.DYSGE1 ---
HPI History of Present Illness Chief Complaint: Head Injury Narrative Narrative: Patient is a 71-year-old male with history of Parkinson's and Lewy body dementia. He stays at a senior living. Reportedly patient fell this evening and struck his head. The patient is unsure how he did this and cannot offer any further history based on his dementia. Nursing reports otherwise patient is at his baseline mental status. [facility] Medical History Asthma Atrial flutter Bicuspid aortic valve Chest discomfort Chronic atrial fibrillation Constipation Dementia Diastolic dysfunction Fatigue Lewy body dementia with behavioral disturbance Nonrheumatic aortic (valve) insufficiency Parkinson disease Pneumonia Toxic metabolic encephalopathy Home Medications escitalopram oxalate 10 mg tablet 10 mg PO QHS 08/29/17 [History Last Taken 03/24/20] carbidopa 10 mg-levodopa 100 mg tablet 1 tab PO 4X/DAY 30 Days #120 08/31/17 [History Last Taken 03/25/20] methotrexate sodium 2.5 mg tablet 15 mg PO SA@1030 05/29/18 [History Last Taken 03/21/20] loratadine 10 mg tablet 10 mg PO DAILY@0630 12/30/19 [History Last Taken 03/25/20] pantoprazole 40 mg PO DAILY 03/25/20 [History Last Taken 03/25/20] acetaminophen 500 mg tablet 625 mg PO Q6H PRN PRN tab 09/23/20 [History Last Taken Unknown] cholecalciferol (vitamin D3) 250 mcg (10,000 unit) tablet 2,000 unit PO Q OTHER DAY tab 09/23/20 [History Last Taken Unknown] diclofenac sodium 1 % topical gel 2 g TOPICAL ONCE PRN g 09/23/20 [History Last Taken Unknown] meclizine 25 mg tablet 25 mg PO DAILY 09/23/20 [History Last Taken Unknown] multivitamin 1 tab PO QAM 09/23/20 [History Last Taken Unknown] nystatin 100,000 unit/gram topical powder 1 applic TOPICAL BID PRN g 09/23/20 [History Last Taken Unknown] quetiapine 100 mg tablet 200 mg PO QHS@2230 tab 09/23/20 [History Last Taken Unknown] rivastigmine 13.3 mg/24 hour transdermal patch 1 patch TRANSDERMAL DAILY ea 09/23/20 [History Last Taken Unknown] tamsulosin 0.4 mg capsule 0.4 mg PO DAILY cap 09/23/20 [History Last Taken Unknown] tramadol 50 mg tablet 50 mg PO DAILY PRN tab 09/23/20 [History Last Taken Unknown] loratadine [Claritin] 10 mg PO DAILY 06/27/21 [History Last Taken Unknown] methotrexate sodium 2.5 mg PO QWEEK 06/27/21 [History Last Taken Unknown] pyridoxine (vitamin B6) 200 mg PO DAILY 06/27/21 [History Last Taken Unknown] quetiapine [Seroquel] 25 mg PO DAILY 06/27/21 [History Last Taken Unknown] rivastigmine [Exelon Patch] 4.6 mg TRANSDERMAL DAILY 06/27/21 [History Last Taken Unknown] Allergy/AdvReac Type Severity Reaction Status Date / Time gentamicin [Gentamicin] Allergy Unknown Verified 06/27/21 01:25 hydrocodone bitartrate Allergy Itching Verified 06/27/21 01:25 [From Vicodin] morphine Allergy Itching Verified 06/27/21 01:25 oxycodone Allergy Itching Verified 06/27/21 01:25 haloperidol [From Haldol] AdvReac NEEDS Verified 06/27/21 01:25 FOLLOW-UP Surgical History H/O repair of rotator cuff History of arthroscopy of knee History of lumbar surgery History of tonsillectomy and adenoidectomy Hx of appendectomy Hx of cholecystectomy Hx of hernia repair Social History Smoking Status: Never smoker how long ago did patient quit smokin years ago alcohol intake: current alcohol intake frequency: holidays/special occasions only substance use type: does not use caffeine: Yes Type: coffee Number of servings: 3 what type of physical activity do you participate in: other details: cc parkinsons exercise program ROS ROS ED ROS Narrative Review of systems is unable to be obtained secondary to patient's history of dementia Review of Systems ROS Unobtainable: due to mental status EXAM Physical Exam Const Vital Signs: 06/27/21 01:16 Temperature 97.6 F L Temperature Source Temporal Pulse Rate 73 Respiratory Rate 18 Blood Pressure 162/115 H Blood Pressure Mean 130 Pulse Ox 98 Oxygen Delivery Method Room Air Positive well nourished and well developed General Appearance ED: well developed HEENT HEENT Narrative: Patient has a hematoma that is approximately 2 x 2 cm in size along the right upper occipital portion of the scalp. There is a small 1 cm dermal layer laceration in the center of this with minimal ooze of blood. Otherwise no signs of depressed or basilar skull fracture. Eyes PERRL and EOMs intact bilaterally Neck supple Neck Narrative: No bony deformity or step-off of the cervical spine no midline pain with palpation Chest Wall palpation of chest normal Resp normal respiratory effort and clear to auscultation bilaterally Cardio regular rate and regular rhythm GI normal to inspection, nondistended, normoactive bowel sounds, non-tender, non-distended and no masses Auscultation: normoactive bowel sounds Palpation: soft Back/Spine Back/Spine Narrative: No bony deformity or step-off of the thoracic or lumbar spine but there is midline upper thoracic pain with palpation Extremity Extremity Narrative: Pelvis is stable there is no shortening or external rotation of either lower extremities. Patient can move both upper and lower extremities without difficulty. Patient does have a large hematoma to the dorsal aspect of his right hand without any obvious bony deformity noted. Neuro CN's II-XII intact bilaterally Neuro Narrative: Patient is awake and alert at his baseline mental status with no focal neurologic deficit Sensorium / Orientation: alert Psych Psych Narrative: Patient has a flat/depressed affect Skin Skin Narrative: Hematoma with laceration to the scalp as well as ecchymosis and hematoma to the dorsal aspect of the right hand as documented above MDM MDM MDM Narrative Medical decision making narrative: Patient presented to the ER with signs of trauma. He cannot offer any history about how he hurt himself and secondary to this CTs of his head and cervical spine were obtained. I added x-rays of his upper back and right hand because of pain on palpation of his thoracic spine and the hematoma/ecchymosis to the right hand. Imaging studies revealed no acute fracture or dislocation. The scalp laceration was closed with Dermabond as documented below. Following this this patient has no underlying skull fracture or brain bleed no cervical spine injury he is safe for discharge back to the senior living. Patient had the scalp laceration cleaned with chlorhexidine. It was then irrigated with copious amounts of normal saline. Manual pressure was then applied to the wound edges and Dermabond applied. Patient tolerated procedure well without complication. Radiography Diagnostic Testing: Clinical Impression(s) from Imaging Studies Brain CT 06/27/21 01:35 IMPRESSION: 1. Mild chronic involutional changes of the brain. 2. No demonstrated acute intracranial process. Electronically Signed: Momo Segal MD at 3:33 EDT , Cervical Spine CT 06/27/21 01:35 IMPRESSION: 1. Multilevel degenerative changes. 2. No demonstrated fracture. Electronically Signed: Momo Segal MD at 3:41 EDT , Thoracic Spine X-Ray 06/27/21 01:35 IMPRESSION: 1. Old compression fracture of the T12 vertebral body. 2. Multilevel degenerative changes. Mild kyphoscoliosis. 3. Intact spinal fusions at the L1-L3 levels. 4. No evidence for acute pathology. Electronically Signed: Momo Segal MD at 3:09 EDT , Discharge Plan Triage Chief Complaint: Head Injury ED Provider: Nathanael Caruso Dx/Rx/DC Orders Clinical Impression: Closed head injury, Laceration of scalp, Hematoma Instructions: ED Head Injury (Adult), ED Hematoma Prescriptions: No Action carbidopa-levodopa 10-100 mg tablet 1 tab PO 4X/DAY 30 Days Qty: 120 RF: 0 escitalopram oxalate 10 mg tablet 10 mg PO QHS RF: 0 methotrexate sodium 2.5 mg tablet 15 mg PO SA@1030 RF: 0 loratadine [Allergy Relief (loratadine)] 10 mg tablet 10 mg PO DAILY@0630 RF: 0 cholecalciferol (vitamin D3) 250 mcg (10,000 unit) tablet 2,000 unit PO Q OTHER DAY RF: 0 multivitamin Tablet 1 tab PO QAM RF: 0 rivastigmine 13.3 mg/24 hour patch 24 hour 1 patch transdermal DAILY RF: 0 tamsulosin 0.4 mg capsule 0.4 mg PO DAILY RF: 0 diclofenac sodium 1 % gel 2 g topical ONCE PRNRF: 0 tramadol 50 mg tablet 50 mg PO DAILY PRN (Reason: Pain) RF: 0 meclizine 25 mg tablet 25 mg PO DAILY RF: 0 nystatin 100,000 unit/gram powder 1 applic topical BID PRNRF: 0 acetaminophen 500 mg tablet 625 mg PO Q6H PRN PRN (Reason: Pain) RF: 0 pantoprazole 40 MG tablet 40 mg PO DAILY RF: 0 quetiapine 100 mg tablet 200 mg PO QHS@2230 RF: 0 quetiapine [Seroquel] 25 mg Tablet 25 mg PO DAILY RF: 0 pyridoxine (vitamin B6) 200 mg Tablet Extended Release 200 mg PO DAILY RF: 0 methotrexate sodium 2.5 mg Tablet 2.5 mg PO QWEEK RF: 0 loratadine [Claritin] 10 mg Tablet 10 mg PO DAILY RF: 0 rivastigmine [Exelon Patch] 4.6 mg/24 hour Patch 24 Hour 4.6 mg TRANSDERMAL DAILY RF: 0 Primary Care Provider: Cristobal Robledo Referrals: Cristobal Robledo DO [Primary Care Provider] - Disposition Disposition: Home, Self Care
[2021-06-27 04:20] VITALS: BP 144/75; PULSE 74; RESP 17; O2SAT 95
--- NOTE | 2021-06-27 04:31 | NURSING ---
report called to chris
== END 2021-06-27 04:54 | disposition home or self-care (01) ==
PROVIDERS: Emergency Provider Emergency Medicine; PCP Family Medicine; Visit Provider Emergency Medicine
DX: S01.01XA Laceration without foreign body of scalp, initial encounter (principal); F03.90 Unspecified dementia, unspecified severity, without behavioral disturbance, psychotic disturbance, mood disturbance, and anxiety; Z87.891 Personal history of nicotine dependence; W19.XXXA Unspecified fall, initial encounter; Z79.899 Other long term (current) drug therapy
CPT/HCPCS: 12001; 70450; 72072; 72125; 73130; 99284